=== PATIENT | female | born 1940 | race Caucasian/White ===

== ENCOUNTER 2020-11-05 13:02 | Outpatient (CLI) | payer MEDICARE, OTHER, SELFPAY ==
--- NOTE | 2020-11-05 13:10 | USCV_ITS ---
Cherry Palm Age: 80 Gender: F : 1940 Exam Date: 11/05/2020 13:41 Ordering Phys: Jeanette Tadeo APN- [employer]ATHLE[employer] Technologist: Reyna Sorenson Exam Location: [facility] [place] Indication: LT LEG PAIN PROCEDURES: The venous duplex Doppler examination of both lower extremities was performed in the standard fashion. Venous duplex imaging was performed in only the left lower extremity. The following venous structures were evaluated: common femoral vein, profunda vein, proximal portion of the greater saphenous vein, superficial femoral vein, and the popliteal vein. In addition, the posterior tibial and peroneal trunk were evaluated. FINDINGS: Normal 2-D Doppler and augmentation and compressibility throughout the lower extremity venous structures. Additional imaging through the proximal calf veins also reveals no thrombus. Limited evaluation of the greater saphenous vein is patent with no thrombus. CONCLUSIONS No DVT left lower extremity. Dr. Ruth Ann Joy DO (Electronically Signed) Final Date: 05 November 2020 13:58 Amended: 06 November 2020 11:02 C
== END 2020-11-05 13:03 | disposition home or self-care (01) ==
LOC: RAD 13:05
PROVIDERS: PCP Nurse Practitioner Family; Visit Provider Nurse Practitioner Family
DX: M79.605 Pain in left leg (principal)
CPT/HCPCS: 93971

== ENCOUNTER 2020-11-07 14:20 | Outpatient (CLI) | payer MEDICARE, OTHER, SELFPAY ==
--- NOTE | 2020-11-07 14:27 | MR_ITS ---
WS: [id number] MRI pelvis and LEFT hip without contrast. HISTORY: Pain LEFT hip beginning in October 2020. No injury. Multiplanar, multisequence imaging is performed of the LEFT hip and pelvis. No acute marrow edema. There is mild to moderate narrowing of the LEFT hip joint. Loss of the cartila ge with irregularity involving the cortical surface of the femoral head and acetabulum. No osteonecro sis. No displacement or fracture. No significant marrow edema. No significant osteoarthritic changes at the RIGHT hip. There is no joint effusion or greater trochanter bursitis. Soft tissues of the hips are symmetric. MR/MR hip LT wo con* [id number] IMPRESSION: 1. No fracture or marrow edema. 2. 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 3. No joint effusion.
== END 2020-11-07 14:21 | disposition home or self-care (01) ==
LOC: RADSHAW 14:26
PROVIDERS: PCP Nurse Practitioner Family; Visit Provider Nurse Practitioner Family
DX: M25.552 Pain in left hip (principal); Z74.09 Other reduced mobility
CPT/HCPCS: 73721

== ENCOUNTER → 2020-11-18 14:16 | Outpatient (BNVA) | payer MEDICARE, OTHER, SELFPAY | PROVIDERS: PCP Nurse Practitioner Family; Referring Provider Nurse Practitioner Family; Visit Provider Orthopaedic Surgery | DX: M25.552 Pain in left hip (principal) | CPT/HCPCS: 73502 ==

== ENCOUNTER 2020-11-20 08:54 | Outpatient (RCR) | payer MEDICARE, OTHER, SELFPAY | END 2020-12-01 23:59 | disposition home or self-care (01) | LOC: SPT 08:54 | PROVIDERS: PCP Nurse Practitioner Family; Referring Provider Orthopaedic Surgery; Visit Provider Orthopaedic Surgery | DX: M25.552 Pain in left hip (principal); M54.5 Low back pain | CPT/HCPCS: 97110; 97162 ==

== ENCOUNTER 2020-12-02 06:00 | Outpatient (RCR) | payer MEDICARE, SELFPAY | END 2020-12-29 23:59 | disposition home or self-care (01) | LOC: SPT 06:00 | PROVIDERS: PCP Nurse Practitioner Family; Referring Provider Orthopaedic Surgery; Visit Provider Orthopaedic Surgery | DX: M25.552 Pain in left hip (principal); M54.5 Low back pain | CPT/HCPCS: 97110 ==

== ENCOUNTER 2022-08-08 07:59 | Emergency (ER) | payer MEDICARE, OTHER, SELFPAY ==
[2022-08-08] VITALS (7 sets, daily range): BP systolic 135–169; BP diastolic 64–97; PULSE 60–71; RESP 16–21; TEMP 36.3; O2SAT 92–97
--- NOTE | 2022-08-08 08:09 | CTR_ITS ---
PROCEDURE INFORMATION: Exam: CT Head Without Contrast Exam date and time: 08/08/2022 8:59 AM Age: 81 years old Clinical indication: Injury or trauma; Fall; Blunt trauma (contusions or hematomas); Altered mental status/memory loss; Additional info: AMS TECHNIQUE: Imaging protocol: Computed tomography of the head without contrast. Radiation optimization: All CT scans at this facility use at least one of these dose optimization techniques: automated exposure control; mA and/or kV adjustment per patient size (includes targeted exams where dose is matched to clinical indication); or iterative reconstruction. COMPARISON: MR cervical spin wo con* [id number] 09/07/2019 1:42 PM RADIATION DOSE METRICS: Total DLP (mGy-cm): 1053.88 FINDINGS: Brain: Patchy hypoattenuation in the periventricular and subcortical white matter, consistent with chronic small vessel ischemia. No CT evidence of acute ischemia. No acute hemorrhage. No mass effect. Cerebral ventricles: No ventriculomegaly. Paranasal sinuses: Visualized sinuses are unremarkable. No fluid levels. Mastoid air cells: Visualized mastoid air cells are well aerated. Bones/joints: Unremarkable. No acute fracture. Soft tissues: Mild left frontal scalp contusion. CT/CT head wo con* [id number] IMPRESSION: No acute intracranial abnormality. Please note that MRI is more sensitive for early changes of acute ischemia.
--- NOTE | 2022-08-08 08:09 | ECG_ITS ---
[facility] Test Date: 2022-08-08 Pat Name: Cherry Palm Department: Room: Gender: Female Director Of Field Sales: : 1940 Requested By: Mathew Howard Order Number: [id number] Jerardo MD: Suzanne Humphries M.D. Measurements Intervals [place] Rate: 59 P: 55 CT: 163 QRS: -44 QRSD: 123 T: 32 QT: 462 QTc: 461 Interpretive Statements SINUS BRADYCARDIA LEFT AXIS DEVIATION [QRS AXIS < -30] POSSIBLE RIGHT VENTRICULAR CONDUCTION DELAY [RSR (QR) IN V1/V2] VOLTAGE CRITERIA FOR LVH [MEETS CRITERIA IN ONE OF: R(aVL), S(V1), R(V5), R(V5/V6)+S(V1)] POSSIBLE SEPTAL MYOCARDIAL INFARCTION , PROBABLY OLD [30 ms Q WAVE IN V1/V2] LATERAL MYOCARDIAL INFARCTION , OF INDETERMINATE AGE [40+ ms Q WAVE AND/OR ST/T ABNORMALITY IN I/aVL/V5/V6] No previous ECG available for comparison Electronically Signed On 08-08-2022 19:30:46 CDT by Suzanne Humphries M.D. [id number]
--- NOTE | 2022-08-08 08:09 | XRR_ITS ---
PROCEDURE INFORMATION: Exam: XR Chest Exam date and time: 08/08/2022 9:05 AM Age: 81 years old Clinical indication: Cough and dyspnea; Additional info: Dyspnea/cough TECHNIQUE: Imaging protocol: Radiologic exam of the chest. Views: 1 view. COMPARISON: MR cervical spin wo con* [id number] 09/07/2019 1:42 PM FINDINGS: Lungs: No focal airspace disease. Pleural spaces: Unremarkable. No pleural effusion. No pneumothorax. Heart/Mediastinum: Cardiomediastinal silhouette is within normal limits. Bones/joints: Unremarkable. XR/XR chest 1V portable [id number] IMPRESSION: No acute cardiopulmonary abnormality.
--- NOTE | 2022-08-08 08:15 | ED_ITS ---
HPI - General Adult General: Chief complaint: Weakness Stated complaint: Confusion, Falling, Weakness Time Seen by Provider: 08/08/22 08:08 Source: patient Mode of arrival: ambulatory History of Present Illness: 81-year-old female presents to the emergency room with complaints of weakness and confusion for the last couple weeks symptoms have gotten worse. He was recently treated for a bladder infection also been treated for bronchitis she was thought to have a nerve impingement and has been through several courses of steroids as well. She reports multiple falls at home. Sounds like they are ground-level mechanical fall she hit her head yesterday she is not on any anticoagulants she denies loss consciousness. She has generalized weakness in her lower extremities. She also reports urinary incontinence. This been going on for some time. She denies any pain in her back or radiating to her legs at this point. Although she evidently has seen a neurosurgeon from [place] concerning this, no advanced imaging. Onset (ago): week(s) Location: head and lower extremity (hips) Severity: moderate Relieving factors: none Exacerbating factors: none Associated symptoms: Deny chest pain, confusion, cough, diaphoresis, decreased appetite, dyspnea, fevers/chills, headache(s), malaise, nausea, rash, palpitations, seizures, short of breath, syncope, vomiting or weakness Review of Systems Const: Denies: fever(s), chills, fatigue, malaise or diaphoresis ENMT: Denies: throat pain, ear or mastoid pain, nasal discharge or nasal congestion Card: Denies: chest pain, palpitations or syncope Resp: Denies: dyspnea or productive cough GI: Denies: abdominal pain, nausea or vomiting : Denies: flank pain, difficulty voiding, dysuria, urinary frequency or urinary urgency Musc: Denies: neck pain or back pain Skin/Breast: Denies: rash Neuro: Denies: headache(s) or confusion PFSH ED PFSH: Medical History 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 Family History Grandmother Diabetes Mother Diabetes Social History (Reviewed 08/08/22 @ 08:59 by ARIANNA Hill Smoking and tobacco status: never smoked Alcohol intake: never Lives independently: Yes Household members: spouse Marital status: service: No Current occupational status: retired History of recent travel: No Leisure activites: exercise Physical Exam Const: GENERAL APPEARANCE: cooperative and comfortable ORIENTATION/ CONSCIOUSNESS: Yes awake, Yes oriented to person, Yes oriented to place and Yes oriented to time HENMT: COMMON NORMALS: normocephalic, atraumatic and hearing grossly normal bilaterally HEAD & SCALP: normocephalic and atraumatic Resp: COMMON NORMALS: normal respiratory effort, No retractions, No use of accessory muscles and clear to auscultation bilaterally AUSCULTATION: clear to auscultation bilaterally Cardio: COMMON NORMALS: regular rate, regular rhythm and No murmurs present (Cardio) RATE: regular rate RHYTHM: regular rhythm GI: COMMON NORMALS: Soft to palpation and No hepatosplenomegaly present AUSCULTATION: Yes normoactive bowel sounds PALPATION: Yes Soft to palpation, No Tenderness to palpation present (GI), No Guarding due to palpation present (GI) and Yes No hepatosplenomegaly present Extremity: COMMON NORMALS: normal to inspection, capillary refill normal, no clubbing, cyanosis or edema, no calf tenderness and no pedal edema Neuro: SENSORIUM/ORIENTATION: Yes oriented to person, Yes oriented to place and Yes oriented to time Skin: COMMON NORMALS: no rashes or lesions noted GENERAL SKIN EXAM: no r ashes or lesions noted Course Vital Signs: Vital signs: Vital Signs Temperature 97.4 F L 08/08/22 08:08 Pulse Rate 63 08/08/22 10:30 Respiratory Rate 18 08/08/22 12:07 Blood Pressure 157/97 08/08/22 12:07 Pulse Oximetry 97 08/08/22 12:07 Oxygen Delivery Me thod 08/08/22 12:07 MDM - General Adult Medical Decision Making Posterior proved patient ambulated. She is hyponatremic but it corrects with adjusting for her glucose. She is improved since she arrived here with the fluids she is able to eat and drink we will discharge her home I think the biggest problem with her confusion and her elevated blood sugars due to s teroids, recommend she stop the oral steroids. Recheck with her primary care doctor in 2 days. Medical Records I reviewed the patient's medical records. Lab Data I reviewed the patient's lab results. : 08/08/22 08:52 08/08/22 08:52 Radiology Impressions Chest X-Ray 08/08/22 08:09 IMPRESSION: No acute cardiopulmonary abnormality. Head CT 08/08/22 08:09 IMPRESSION: No acute intracranial abnormality. Please note that MRI is more sensitive for early changes of acute ischemia. Laboratory Results WBC 14.0 10^3/uL (4.0-10.0) H 08/08/22 08:52 RBC 4.30 10^6/uL (4.1-5.3) 08/08/22 08:52 Hgb 14.2 g/dL (11.5-15.3) 08/08/22 08:52 Hct 41.4 % (37.0-47.0) 08/08/22 08:52 MCV 96.3 fl (81-99) 08/08/22 08:52 MCH 33.0 pg (28.0-34.0) 08/08/22 08:52 MCHC 34.3 g/dL (30.0-36.0) 08/08/22 08:52 RDW 12.5 % (12.1-15.1) 08/08/22 08:52 Plt Count 239 10^3/cmm (130-400) 08/08/22 08:52 MPV 11.0 fL (7.4-10.4) H 08/08/22 08:52 Neut % (Auto) 83.6 % 08/08/22 08:52 Lymph % (Auto) 9.7 % 08/08/22 08:52 [place] % (Auto) 5.1 % 08/08/22 08:52 Eos % (Auto) 0.2 % 08/08/22 08:52 Baso % (Auto) 0.3 % 08/08/22 08:52 Neut # (Auto) 11.69 10^3/uL (1.8-7.7) H 08/08/22 08:52 Lymph # (Auto) 1.4 10^3/uL (0.8-4.8) 08/08/22 08:52 [place] # (Auto) 0.7 10^3/uL (0.2-0.9) 08/08/22 08:52 Eos # (Auto) 0.0 10^3/uL (0.0-0.8) 08/08/22 08:52 Baso # (Auto) 0.0 10^3/uL (0.0-0.1) 08/08/22 08:52 Nucleated RBC % (auto) 0 % 08/08/22 08:52 Nucleated RBCs # 0.0 /100WBC 08/08/22 08:52 Sodium 129 mmol/L (136-145) L 08/08/22 08:52 Potassium 5.1 mmol/L (3.5-5.1) 08/08/22 08:52 Chloride 92 mmol/L (98-107) L 08/08/22 08:52 Carbon Dioxide 18 mmol/L (22-29) L 08/08/22 08:52 Anion Gap 24.1 (5-19) H 08/08/22 08:52 BUN 27 mg/dL (8-23) H 08/08/22 08:52 Creatinine 0.9 mg/dL (0.5-0.9) 08/08/22 08:52 GFR Calculation Not Reportable 08/08/22 08:52 Glucose 498 mg/dL (65-115) H 08/08/22 08:52 POC Glucose 287 mg/dL (70-110) H 08/08/22 12:20 Calculated Osmolality 295 mOsm/kg (285-295) 08/08/22 08:52 Calcium 10.1 mg/dL (8.5-10.5) 08/08/22 08:52 Total Bilirubin 0.4 mg/dL (0.15-1.2) 08/08/22 08:52 AST 19 U/L (0-32) 08/08/22 08:52 ALT 28 U/L (0-33) 08/08/22 08:52 Alkaline Phosphatase 126 U/L (35-105) H 08/08/22 08:52 Troponin T Baseline 29 ng/L (0-10) H 08/08/22 08:52 Troponin T 120 Minute 26.92 ng/L (0-10) H 08/08/22 10:51 Delta Troponin T -2.08 ABS# (0-10) L 08/08/22 10:51 Total Protein 7.2 g/dL (6.6-8.7) 08/08/22 08:52 Albumin 3.2 g/dL (3.5-5.2) L 08/08/22 08:52 Globulin 4.0 g/dL (1.3-4.6) 08/08/22 08:52 Urine Color Yellow (Yellow) 08/08/22 09:20 Urine Appearance Clear (CLEAR) 08/08/22 09:20 Urine pH 5 (5-7) 08/08/22 09:20 Ur Specific [place] 1.015 (1.005-1.030) 08/08/22 09:20 Urine Protein Neg (Negative) 08/08/22 09:20 Urine Glucose (UA) 4+ (Normal) H 08/08/22 09:20 Urine Ketones 2+ (Negative) H 08/08/22 09:20 Urine Blood Neg (Negative) 08/08/22 09:20 Urine Nitrate Negative (Negative) 08/08/22 09:20 Urine Bilirubin Neg (Negative) 08/08/22 09:20 Urine Urobilinogen Neg mg/dL (Negative) 08/08/22 09:20 Ur Leukocyte Esterase Negative (Negative) 08/08/22 09:20 Discharge Plan Discharge Patient Disposition: Home Clinical Impression: Stenosis of cervical spine with myelopathy, Side effect of drug, Diabetes Condition: Stable Prescriptions: No Action Januvia 100 mg tablet 100 mg PO ONCE glipizide 5 mg tablet 5 mg PO ONCE Jardiance 10 mg tablet 10 mg PO QAM amlodipine 5 mg tablet 5 mg PO ONCE levothyroxine 137 mcg capsule 137 mcg PO ONCE lovastatin 20 mg tablet 20 mg PO ONCE estradiol 2 mg tablet 2 mg PO ONCE omega 9-hny-hov-fish oil [Fish Oil] 1,000 mg (120 mg-180 mg) capsule 2 cap PO TID clonazepam 0.5 mg tablet 0.5 mg PO ONCE diphenoxylate-atropine 2.5-0.025 mg tablet 1 tab PO Q6H PRN cyanocobalamin (vitamin B-12) 1,000 mcg capsule 1,000 mcg PO ONCE aspirin 81 mg tablet,delayed release (DR/EC) 81 mg PO ONCE potassium 99 mg tablet PO ONCE tramadol 50 mg tablet 50 mg PO TID PRN Discharge Orders: Discharge ED (Routine); Ordered 08/08/22 Ordered By: Mathew Bahena Referrals: Tadeo,Jeanette, IT AUDIT MANAGER [Primary Care Provider] - Discharge Diet: Usual diet Discharge Activity: Increase activity as tolerated Patient Instructions: Opioid Safety, Pain Management Activity Restrictions/Additional Instructions: Stop oral steroids continue antihyperglycemic meds occasions. Follow-up with your primary care doctor in 2 days. Return if you have further problems. Coding Level of Care Code ED Engineer Assistant for Vannag Fwd Exam Detailed
[2022-08-08 09:07] LABS: Basophils % 0.3 %; Eosinophils % 0.2 %; Hematocrit 41.4 % (37.0-47.0); Hemoglobin 14.2 g/dL (11.5-15.3); Lymphocytes # 1.4 10^3/uL (0.8-4.8); Lymphocytes % 9.7 %; Mean Corpuscular HGB Conc 34.3 g/dL (30.0-36.0); Mean Corpuscular Volume 96.3 fl (81-99); Monocytes # 0.7 10^3/uL (0.2-0.9); Monocytes % 5.1 %; Neutrophils # 11.69 10^3/uL (1.8-7.7); Neutrophils % 83.6 %; Nucleated Red Blood Cells % 0 %; Platelet Count 239 10^3/cmm (130-400); Red Cell Distribution Width 12.5 % (12.1-15.1)
[2022-08-08 09:23] LABS: Alanine Aminotransferase 28 U/L (0-33); Albumin Level 3.2 g/dL (3.5-5.2); Alkaline Phosphatase 126 U/L (35-105); Blood Urea Nitrogen 27 mg/dL (8-23); Calcium 10.1 mg/dL (8.5-10.5); Carbon Dioxide 18 mmol/L (22-29); Chloride 92 mmol/L (98-107); Glucose 498 mg/dL (65-115); Osmolality Calculated 295 mOsm/kg (285-295); Sodium 129 mmol/L (136-145); Total Bilirubin 0.4 mg/dL (0.15-1.2); Total Protein 7.2 g/dL (6.6-8.7)
[2022-08-08 09:24] LABS: Troponin(5th) Baseline 29 ng/L (0-10)
[2022-08-08 09:32] LABS: Anion Gap 24.1 (5-19); Aspartate Amino Transferase 19 U/L (0-32); Potassium 5.1 mmol/L (3.5-5.1)
[2022-08-08 09:33] LABS: Add Urine Microscopic? NO; Charge for UA Resulting for Rev
[2022-08-08 09:41] LABS: Specific Gravity, Urine 1.015 (1.005-1.030); Urine Appearance Clear (CLEAR); Urine Color Yellow (Yellow); pH Urine 5 (5-7)
[2022-08-08 09:42] LABS: Bilirubin Urine Neg (Negative); Blood Urine Neg (Negative); Glucose Urine UA 4+ (Normal); Ketones Urine 2+ (Negative); Leukocyte Esterase Urine Negative (Negative); Nitrate Urine Negative (Negative); Protein Urine Neg (Negative); Urobilinogen Urine Neg (Negative)
--- NOTE | 2022-08-08 10:09 | ECG_ITS ---
[facility] Test Date: 2022-08-08 Pat Name: Cherry Palm Department: Room: Gender: Female [employer]: : 1940 Requested By: Mathew Howard Order Number: [id number] Jerardo MD: Suzanne Humphries M.D. Measurements Intervals [place] Rate: 63 P: 66 MN: 164 QRS: -43 QRSD: 133 T: 59 QT: 464 QTc: 476 Interpretive Statements Normal sinus rhythm Left-ventricular hypertrophy Possible lateral wall infarction Nonspecific IVCD Right ventricular conduction delay ABNORMAL RHYTHM ECG Compared to ECG 08/08/2022 07:56:23 Sinus bradycardia no longer present Electronically Signed On 08-08-2022 19:39:16 CDT by Suzanne Humphries M.D. [id number]
[2022-08-08] MEDS: sodium chloride 0.9% 1,000 ML 999 ML IV (10:28)
[2022-08-08] MEDS: insulin regular-human 100 units/1 mL 10 UNIT IVP (10:50)
[2022-08-08 11:14] LABS: Troponin 5 2HR 26.92 ng/L (0-10)
[2022-08-08 11:15] LABS: Glucose Point of Care 414 mg/dL (70-110)
[2022-08-08 11:15] LABS: Troponin 5 2HR Delta -2.08 ABS# (0-10)
[2022-08-08 12:23] LABS: Glucose Point of Care 287 mg/dL (70-110)
== END 2022-08-08 12:58 | disposition home or self-care (01) ==
PROVIDERS: Emergency Provider Family Medicine; PCP Nurse Practitioner Family
DX: T88.7XXA Unspecified adverse effect of drug or medicament, initial encounter (principal); T50.905A Adverse effect of unspecified drugs, medicaments and biological substances, initial encounter; M48.02 Spinal stenosis, cervical region; G99.2 Myelopathy in diseases classified elsewhere; E11.9 Type 2 diabetes mellitus without complications; Z79.84 Long term (current) use of oral hypoglycemic drugs; Z79.82 Long term (current) use of aspirin
CPT/HCPCS: 36415; 36416; 70450; 71045; 80053; 81003; 82962; 84484; 85025; 93005; 96361; 96374; 99285; J1815; J7030

== ENCOUNTER 2022-08-08 21:02 | Inpatient (IN) | payer MEDICARE, OTHER, SELFPAY ==
[2022-08-08 21:08] VITALS: BP 153/80; PULSE 79; RESP 18; TEMP 36.5; O2SAT 93; BMI 25.2
--- NOTE | 2022-08-08 21:49 | ED_ITS ---
Documented by User: Nova Brown MD 08/08/22 23:03 HPI - General Adult General: Chief complaint: General Medical Stated complaint: blood sugar issues Time Seen by Provider: 08/08/22 21:49 History of Present Illness: Patient is an 81-year-old female with a history of type 2 diabetes who was seen earlier today in the emergency room for concerns of increased confusion and lightheadedness presents the emergency room for concerns of hyperglycemia. Patient was discharged home earlier today and shortly after going home, patient reports that her glucose has increased. Patient came back to the emergency room for concerns of glucose of 500. Patient reports no longer has any lightheadedness sensation today. Denies any fever/chills, cough, no sore throat, chest pain or shortness of breath. Patient denies any abdominal complaints at this time. Per patient's son, patient has been using steroid medication for treatment of poison neeru. Patient normally does not take any insulin. Patient denies any other focal complaints at this time. Onset:earlier today Duration:ongoing Location:home Severity:moderate Associated symptoms: Deny chest pain, dyspnea, nausea, rash, palpitations or vomiting Review of Systems Const: Denies: fever(s) or chills Eyes: Denies: change in vision ENMT: Denies: mouth pain Card: Denies: chest pain or palpitations Resp: Denies: dyspnea or non-productive cough GI: Denies: abdominal pain, nausea, vomiting or diarrhea : Denies: dysuria Musc: Denies: extremity pain Skin/Breast: Denies: rash or new lesions Neuro: Denies: weakness in extremities Psych: Reports: other (Normal mood) Jem/Lymph: Denies: easy bruising PFSH ED PFSH: Medical History 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 Family History Grandmother Diabetes Mother Diabetes Social History Smoking and tobacco status: never smoked Alcohol intake: never Lives independently: Yes Household members: spouse Marital status: service: No Current occupational status: retired History of recent travel: No Leisure activites: exercise Physical Exam Const: COMMON NORMALS: alert HENMT: COMMON NORMALS: atraumatic HEAD & SCALP: atraumatic MOUTH: moist mucous membranes not abnormal Eye: COMMON NORMALS: EOMs intact bilaterally and conjunctivae normal CONJUNCTIVA: Yes conjunctivae normal Neck/C-Spine: COMMON NORMALS: full ROM and supple Resp: COMMON NORMALS: normal respiratory effort and clear to auscultation bilaterally AUSCULTATION: clear to auscultation bilaterally Cardio: COMMON NORMALS: regular rate RATE: regular rate GI: COMMON NORMALS: Soft to palpation and non-tender PALPATION: Yes Soft to palpation OTHER: No focal TTP. NO guarding rebound, guarding, rigidity. No CVA tenderness to percussion. Neg Valle/Neg McBurney's point tenderness, no suprabupic tenderness to palpation. Extremity: COMMON NORMALS: full ROM Neuro: SENSORIUM/ORIENTATION: Yes alert MOTOR EXAM: No Abnormal motor strength present and Other motor observations present (no focal motor deficits) Psych: COMMON NORMALS: speech normal SPEECH: Yes normal speech MOOD & AFFECT: Yes euthymic mood Course Vital Signs: Vital signs: Vital Signs Temperature 97.7 F 08/09/22 11:47 Pulse Rate 78 08/09/22 11:47 Respiratory Rate 16 08/09/22 11:47 Blood Pressure 132/76 08/09/22 11:47 Pulse Oximetry 98 08/09/22 11:47 Oxygen Delivery Me thod 08/09/22 11:47 Oxygen Flow Rate 2 08/09/22 09:28 [facility] - General Adult Medical Decision Making Patient is an 81-year-old female with a history of type 2 diabetes who was seen earlier today in the emergency room for concerns of increased confusion and lightheadedness presents the emergency room for concerns of hyperglycemia. Arrival, patient has a glucose 529. Serum ketones negative. Do not suspect DKA. White count 15.9 similar to presentation earlier today 6 consistent with possible reactive leukocytosis due to steroids. Do not suspect any acute infection. Patient received 100 cc IVF and 5 units of insulin lispro. Case signed out pending reassessment. Lab Data : 08/09/22 05:35 08/09/22 05:35 Radiology Impressions Chest X-Ray 08/09/22 04:14 IMPRESSION: There is patchy opacity in the medial left lung base which may be due to a left lower lobe pneumonia. Lumbar Spine CT 08/09/22 06:32 IMPRESSION: 1. No acute findings. 2. Chronic degenerative disc disease with disc protrusions and moderate spinal stenosis at L2-L3 and L3-L4 and mild spinal stenosis at L4-L5. Laboratory Results WBC 15.9 10^3/uL (4.0-10.0) H 08/08/22 21:45 RBC 4.01 10^6/uL (4.1-5.3) L 08/08/22 21:45 Hgb 12.9 g/dL (11.5-15.3) 08/08/22 21:45 Hct 38.7 % (37.0-47.0) 08/08/22 21:45 MCV 96.5 fl (81-99) 08/08/22 21:45 MCH 32.2 pg (28.0-34.0) 08/08/22 21:45 MCHC 33.3 g/dL (30.0-36.0) 08/08/22 21:45 RDW 12.6 % (12.1-15.1) 08/08/22 21:45 Plt Count 290 10^3/cmm (130-400) 08/08/22 21:45 MPV 10.1 fL (7.4-10.4) 08/08/22 21:45 Neut % (Auto) 80.2 % 08/08/22 21:45 Lymph % (Auto) 9.6 % 08/08/22 21:45 [place] % (Auto) 7.4 % 08/08/22 21:45 Eos % (Auto) 1.7 % 08/08/22 21:45 Baso % (Auto) 0.2 % 08/08/22 21:45 Neut # (Auto) 12.74 10^3/uL (1.8-7.7) H 08/08/22 21:45 Lymph # (Auto) 1.5 10^3/uL (0.8-4.8) 08/08/22 21:45 [place] # (Auto) 1.2 10^3/uL (0.2-0.9) H 08/08/22 21:45 Eos # (Auto) 0.3 10^3/uL (0.0-0.8) 08/08/22 21:45 Baso # (Auto) 0.0 10^3/uL (0.0-0.1) 08/08/22 21:45 Nucleated RBC % (auto) 0 % 08/08/22 21:45 Nucleated RBCs # 0.0 /100WBC 08/08/22 21:45 Specimen Type Arterial 08/08/22 00:35 Sample Site radial,right 08/08/22 00:35 ABG pH 7.40 (7.35-7.45) 08/08/22 00:35 ABG pCO2 34.1 mmHg (35-45) L 08/08/22 00:35 ABG pO2 74.8 mmHg (80.0-100.0) L 08/08/22 00:35 ABG HCO3 20.8 mmol/L (22-26) L 08/08/22 00:35 ABG Base Excess -3.4 mmol/L (-2.0-2.0) L 08/08/22 00:35 Yared Test Pos 08/08/22 00:35 Hematocrit 37.2 % (37-47) 08/08/22 00:35 O2 Delivery Device room air 08/08/22 00:35 Concert Promoter ID [email or web address] 08/08/22 00:35 Sodium 133 mmol/L (136-145) L 08/08/22 21:45 Potassium 4.6 mmol/L (3.5-5.1) 08/08/22 21:45 Chloride 96 mmol/L (98-107) L 08/08/22 21:45 Carbon Dioxide 21 mmol/L (22-29) L 08/08/22 21:45 Anion Gap 20.6 (5-19) H 08/08/22 21:45 BUN 30 mg/dL (8-23) H 08/08/22 21:45 Creatinine 1.1 mg/dL (0.5-0.9) H 08/08/22 21:45 GFR Calculation Not Reportable 08/08/22 21:45 Glucose 524 mg/dL (65-115) H* 08/08/22 21:45 POC Glucose 270 mg/dL (70-110) H 08/09/22 01:32 Calculated Osmolality 306 mOsm/kg (285-295) H 08/08/22 21:45 Calcium 9.4 mg/dL (8.5-10.5) 08/08/22 21:45 Troponin T Baseline 37 ng/L (0-10) H 08/08/22 21:45 Troponin T 120 Minute 34.86 ng/L (0-10) H 08/08/22 23:30 Delta Troponin T -2.14 ABS# (0-10) L 08/08/22 23:30 Serum Ketones Positive (Negative) H 08/08/22 23:30 Discharge Plan Discharge Patient Disposition: Placed in Observation Admit Provider: Rosy Padilla Clinical Impression: Hyperglycemia Discharge Diet: Advance as tolerated Discharge Activity: Increase activity as tolerated Sign Out Sign Out Data: Patient Sign Out occurred on 08/08/22 at 23:00. Patient's care was discussed, and care was transferred from to KIESHA Phipps. 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 Family History Grandmother Diabetes Mother Diabetes Social History Smoking and tobacco status: never smoked Alcohol intake: never Lives independently: Yes Household members: spouse Marital status: service: No Current occupational status: retired History of recent travel: No Leisure activites: exercise Course Vital Signs: Vital signs: Vital Signs Temperature 97.7 F 08/09/22 11:47 Pulse Rate 78 08/09/22 11:47 Respiratory Rate 16 08/09/22 11:47 Blood Pressure 132/76 08/09/22 11:47 Pulse Oximetry 98 10/09/22 11:47 Oxygen Delivery Me thod 08/09/22 11:47 Oxygen Flow Rate 2 08/09/22 09:28 MDM - General Adult Medical Decision Making Patient is an 81-year-old female with a history of type 2 diabetes who was seen earlier today in the emergency room for concerns of increased confusion and lightheadedness presents the emergency room for concerns of hyperglycemia. Arrival, patient has a glucose 529. Serum ketones positive. White count 15.9 similar to presentation earlier today 6 consistent with possible reactive leukocytosis due to steroids. Do not suspect any acute infection. Patient received 100 cc IVF and 5 units of insulin lispro. Case signed out pending reassessment. Lab Data I reviewed the patient's lab results. : 08/09/22 05:35 08/09/22 05:35 Radiology Impressions Chest X-Ray 08/09/22 04:14 IMPRESSION: There is patchy opacity in the medial left lung base which may be due to a left lower lobe pneumonia. Lumbar Spine CT 08/09/22 06:32 IMPRESSION: 1. No acute findings. 2. Chronic degenerative disc disease with disc protrusions and moderate spinal stenosis at L2-L3 and L3-L4 and mild spinal stenosis at L4-L5. Laboratory Results WBC 15.9 10^3/uL (4.0-10.0) H 08/08/22 21:45 RBC 4.01 10^6/uL (4.1-5.3) L 08/08/22 21:45 Hgb 12.9 g/dL (11.5-15.3) 08/08/22 21:45 Hct 38.7 % (37.0-47.0) 08/08/22 21:45 MCV 96.5 fl (81-99) 08/08/22 21:45 MCH 32.2 pg (28.0-34.0) 08/08/22 21:45 MCHC 33.3 g/dL (30.0-36.0) 08/08/22 21:45 RDW 12.6 % (12.1-15.1) 08/08/22 21:45 Plt Count 290 10^3/cmm (130-400) 08/08/22 21:45 MPV 10.1 fL (7.4-10.4) 08/08/22 21:45 Neut % (Auto) 80.2 % 08/08/22 21:45 Lymph % (Auto) 9.6 % 08/08/22 21:45 [place] % (Auto) 7.4 % 08/08/22 21:45 Eos % (Auto) 1.7 % 08/08/22 21:45 Baso % (Auto) 0.2 % 08/08/22 21:45 Neut # (Auto) 12.74 10^3/uL (1.8-7.7) H 08/08/22 21:45 Lymph # (Auto) 1.5 10^3/uL (0.8-4.8) 08/08/22 21:45 [place] # (Auto) 1.2 10^3/uL (0.2-0.9) H 08/08/22 21:45 Eos # (Auto) 0.3 10^3/uL (0.0-0.8) 08/08/22 21:45 Baso # (Auto) 0.0 10^3/uL (0.0-0.1) 08/08/22 21:45 Nucleated RBC % (auto) 0 % 08/08/22 21:45 Nucleated RBCs # 0.0 /100WBC 08/08/22 21:45 Specimen Type Arterial 08/08/22 00:35 Sample Site radial,right 08/08/22 00:35 ABG pH 7.40 (7.35-7.45) 08/08/22 00:35 ABG pCO2 34.1 mmHg (35-45) L 08/08/22 00:35 ABG pO2 74.8 mmHg (80.0-100.0) L 08/08/22 00:35 ABG HCO3 20.8 mmol/L (22-26) L 08/08/22 00:35 ABG Base Excess -3.4 mmol/L (-2.0-2.0) L 08/08/22 00:35 Yared Test Pos 08/08/22 00:35 Hematocrit 37.2 % (37-47) 08/08/22 00:35 O2 Delivery Device room air 08/08/22 00:35 Concert Promoter ID [email or web address] 08/08/22 00:35 Sodium 133 mmol/L (136-145) L 08/08/22 21:45 Potassium 4.6 mmol/L (3.5-5.1) 08/08/22 21:45 Chloride 96 mmol/L (98-107) L 08/08/22 21:45 Carbon Dioxide 21 mmol/L (22-29) L 08/08/22 21:45 Anion Gap 20.6 (5-19) H 08/08/22 21:45 BUN 30 mg/dL (8-23) H 08/08/22 21:45 Creatinine 1.1 mg/dL (0.5-0.9) H 08/08/22 21:45 GFR Calculation Not Reportable 08/08/22 21:45 Glucose 524 mg/dL (65-115) H* 08/08/22 21:45 POC Glucose 270 mg/dL (70-110) H 08/09/22 01:32 Calculated Osmolality 306 mOsm/kg (285-295) H 08/08/22 21:45 Calcium 9.4 mg/dL (8.5-10.5) 08/08/22 21:45 Troponin T Baseline 37 ng/L (0-10) H 08/08/22 21:45 Troponin T 120 Minute 34.86 ng/L (0-10) H 08/08/22 23:30 Delta Troponin T -2.14 ABS# (0-10) L 08/08/22 23:30 Serum Ketones Positive (Negative) H 08/08/22 23:30 Discharge Plan Discharge Patient Disposition: Placed in Observation Admit Provider: Rosy Padilla Clinical Impression: Hyperglycemia Discharge Diet: Advance as tolerated Discharge Activity: Increase activity as tolerated Sign Out Sign Out Data: Patient Sign Out occurred on 08/08/22 at 23:00. Patient's care was discussed, and care was transferred from to KIESHA Phipps. 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 Family History Grandmother Diabetes Mother Diabetes Social History Smoking and tobacco status: never smoked Alcohol intake: never Lives independently: Yes Household members: spouse Marital status: service: No Current occupational status: retired History of recent travel: No Leisure activites: exercise Course Vital Signs: Vital signs: Vital Signs Temperature 97.7 F 08/09/22 11:47 Pulse Rate 78 08/09/22 11:47 Respiratory Rate 16 08/09/22 11:47 Blood Pressure 132/76 08/09/22 11:47 Pulse Oximetry 98 08/09/22 11:47 Oxygen Delivery Oh thod 08/09/22 11:47 Oxygen Flow Rate 2 08/09/22 09:28 MDM - General Adult Medical Decision Making Patient is an 81-year-old female with a history of type 2 diabetes who was seen earlier today in the emergency room for concerns of increased confusion and lightheadedness presents the emergency room for concerns of hyperglycemia. Arrival, patient has a glucose 529. Serum ketones positive. White count 15.9 similar to presentation earlier today 6 consistent with possible reactive leukocytosis due to steroids. Do not suspect any acute infection. Patient received 1000 cc IVF and 5 units of insulin lispro. Case signed out pending reassessment. Case signed out to me at shift change. The patient received 5 more units of insulin. Blood sugar now 270. She is still incredibly weak, and mildly confused. Serum ketones are positive. She does not have a gap now she is not acidotic. She will be observed for generalized weakness, with uncontrolled hyperglycemia. Lab Data : 08/09/22 05:35 08/09/22 05:35 Radiology Impressions Chest X-Ray 08/09/22 04:14 IMPRESSION: There is patchy opacity in the medial left lung base which may be due to a left lower lobe pneumonia. Lumbar Spine CT 08/09/22 06:32 IMPRESSION: 1. No acute findings. 2. Chronic degenerative disc disease with disc protrusions and moderate spinal stenosis at L2-L3 and L3-L4 and mild spinal stenosis at L4-L5. Laboratory Results WBC 15.9 10^3/uL (4.0-10.0) H 08/08/22 21:45 RBC 4.01 10^6/uL (4.1-5.3) L 08/08/22 21:45 Hgb 12.9 g/dL (11.5-15.3) 08/08/22 21:45 Hct 38.7 % (37.0-47.0) 08/08/22 21:45 MCV 96.5 fl (81-99) 08/08/22 21:45 MCH 32.2 pg (28.0-34.0) 08/08/22 21:45 MCHC 33.3 g/dL (30.0-36.0) 08/08/22 21:45 RDW 12.6 % (12.1-15.1) 08/08/22 21:45 Plt Count 290 10^3/cmm (130-400) 08/08/22 21:45 MPV 10.1 fL (7.4-10.4) 08/08/22 21:45 Neut % (Auto) 80.2 % 08/08/22 21:45 Lymph % (Auto) 9.6 % 08/08/22 21:45 [place] % (Auto) 7.4 % 08/08/22 21:45 Eos % (Auto) 1.7 % 08/08/22 21:45 Baso % (Auto) 0.2 % 08/08/22 21:45 Neut # (Auto) 12.74 10^3/uL (1.8-7.7) H 08/08/22 21:45 Lymph # (Auto) 1.5 10^3/uL (0.8-4.8) 08/08/22 21:45 [place] # (Auto) 1.2 10^3/uL (0.2-0.9) H 08/08/22 21:45 Eos # (Auto) 0.3 10^3/uL (0.0-0.8) 08/08/22 21:45 Baso # (Auto) 0.0 10^3/uL (0.0-0.1) 08/08/22 21:45 Nucleated RBC % (auto) 0 % 08/08/22 21:45 Nucleated RBCs # 0.0 /100WBC 08/08/22 21:45 Specimen Type Arterial 08/08/22 00:35 Sample Site radial,right 08/08/22 00:35 ABG pH 7.40 (7.35-7.45) 08/08/22 00:35 ABG pCO2 34.1 mmHg (35-45) L 08/08/22 00:35 ABG pO2 74.8 mmHg (80.0-100.0) L 08/08/22 00:35 ABG HCO3 20.8 mmol/L (22-26) L 08/08/22 00:35 ABG Base Excess -3.4 mmol/L (-2.0-2.0) L 08/08/22 00:35 Yared Test Pos 08/08/22 00:35 Hematocrit 37.2 % (37-47) 08/08/22 00:35 O2 Delivery Device room air 08/08/22 00:35 Concert Promoter ID [email or web address] 08/08/22 00:35 Sodium 133 mmol/L (136-145) L 08/08/22 21:45 Potassium 4.6 mmol/L (3.5-5.1) 08/08/22 21:45 Chloride 96 mmol/L (98-107) L 08/08/22 21:45 Carbon Dioxide 21 mmol/L (22-29) L 08/08/22 21:45 Anion Gap 20.6 (5-19) H 08/08/22 21:45 BUN 30 mg/dL (8-23) H 08/08/22 21:45 Creatinine 1.1 mg/dL (0.5-0.9) H 08/08/22 21:45 GFR Calculation Not Reportable 08/08/22 21:45 Glucose 524 mg/dL (65-115) H* 08/08/22 21:45 POC Glucose 270 mg/dL (70-110) H 08/09/22 01:32 Calculated Osmolality 306 mOsm/kg (285-295) H 08/08/22 21:45 Calcium 9.4 mg/dL (8.5-10.5) 08/08/22 21:45 Troponin T Baseline 37 ng/L (0-10) H 08/08/22 21:45 Troponin T 120 Minute 34.86 ng/L (0-10) H 08/08/22 23:30 Delta Troponin T -2.14 ABS# (0-10) L 08/08/22 23:30 Serum Ketones Positive (Negative) H 08/08/22 23:30 Discharge Plan Discharge Patient Disposition: Placed in Observation Admit Provider: Rosy Padilla Clinical Impression: Hyperglycemia Discharge Diet: Advance as tolerated Discharge Activity: Increase activity as tolerated Sign Out Sign Out Data: Patient Sign Out occurred on 08/08/22 at 23:00. Patient's care was discussed, and care was transferred from to KIESHA Phipps. Coding Level of Care Code ED Window Glass Installer for Frannie Fwd Exam Comprehensive
[2022-08-08 21:51] LABS: Glucose Point of Care 492 mg/dL (70-110)
[2022-08-08] MEDS: sodium chloride 0.9% 500 ML IV (21:55)
[2022-08-08 21:58] LABS: Basophils % 0.2 %; Eosinophils # 0.3 10^3/uL (0.0-0.8); Eosinophils % 1.7 %; Hematocrit 38.7 % (37.0-47.0); Hemoglobin 12.9 g/dL (11.5-15.3); Lymphocytes # 1.5 10^3/uL (0.8-4.8); Lymphocytes % 9.6 %; Mean Corpuscular HGB Conc 33.3 g/dL (30.0-36.0); Mean Corpuscular Hemoglobin 32.2 pg (28.0-34.0); Mean Corpuscular Volume 96.5 fl (81-99); Mean Platelet Volume 10.1 fL (7.4-10.4); Monocytes # 1.2 10^3/uL (0.2-0.9); Monocytes % 7.4 %; Neutrophils # 12.74 10^3/uL (1.8-7.7); Neutrophils % 80.2 %; Nucleated Red Blood Cells % 0 %; Platelet Count 290 10^3/cmm (130-400); Red Blood Count 4.01 10^6/uL (4.1-5.3); Red Cell Distribution Width 12.6 % (12.1-15.1); White Blood Count 15.9 10^3/uL (4.0-10.0)
[2022-08-08 22:17] LABS: Anion Gap 20.6 (5-19); Blood Urea Nitrogen 30 mg/dL (8-23); Calcium 9.4 mg/dL (8.5-10.5); Carbon Dioxide 21 mmol/L (22-29); Chloride 96 mmol/L (98-107); Osmolality Calculated 306 mOsm/kg (285-295); Potassium 4.6 mmol/L (3.5-5.1); Sodium 133 mmol/L (136-145)
--- NOTE | 2022-08-08 22:21 | ECG_ITS ---
[facility] Test Date: 2022-08-08 Pat Name: Cherry Palm Department: Room: Gender: Female Cafe Attendant: : 1940 Requested By: Nova Brown Order Number: [id number] Jerardo MD: Suzanne Humphries M.D. Measurements Intervals [place] Rate: 76 P: 60 LA: 161 QRS: -48 QRSD: 134 T: 56 QT: 425 QTc: 479 Interpretive Statements SINUS RHYTHM LEFT AXIS DEVIATION [QRS AXIS < -30] INTRAVENTRICULAR CONDUCTION DELAY [130+ ms QRS DURATION] VOLTAGE CRITERIA FOR LVH [MEETS CRITERIA IN ONE OF: R(aVL), S(V1), R(V5), R(V5/V6)+S(V1)] POSSIBLE SEPTAL MYOCARDIAL INFARCTION , OF INDETERMINATE AGE [30 ms Q WAVE IN V1/V2] Compared to ECG 08/08/2022 11:17:28 Left-axis deviation now present Left ventricular hypertrophy now present Myocardial infarct finding still present Electronically Signed On 08-09-2022 18:04:07 CDT by Suzanne Humphries M.D. [id number]
[2022-08-08 22:30] LABS: Glucose 524 mg/dL (65-115)
[2022-08-08 22:50] LABS: Troponin(5th) Baseline 37 ng/L (0-10)
[2022-08-08] MEDS: insulin lispro 100 unit/1 mL SUBCUT (22:54)
[2022-08-08] MEDS: insulin regular-human 100 units/1 mL 5 UNIT IVP (23:20)
[2022-08-08 23:52] LABS: Ketone (Acetest) Serum Positive (Negative)
[2022-08-09] VITALS (9 sets, daily range): BP systolic 132–175; BP diastolic 73–91; PULSE 73–88; RESP 15–18; TEMP 36.3–36.8; O2SAT 91–98
[2022-08-09 00:05] LABS: Troponin 5 2HR 34.86 ng/L (0-10)
[2022-08-09 00:19] LABS: Troponin 5 2HR Delta -2.14 ABS# (0-10)
--- NOTE | 2022-08-09 00:35 | ECG_ITS ---
[facility] Test Date: 2022-08-09 Pat Name: Cherry Palm Department: Room: Gender: Female Cyanide Pot Tender: : 1940 Requested By: Nova Brown Order Number: [id number] Jerardo MD: Suzanne Humphries M.D. Measurements Intervals [place] Rate: 73 P: 40 [place]: 166 QRS: -47 QRSD: 124 T: 57 QT: 427 QTc: 472 Interpretive Statements SINUS RHYTHM RIGHT BUNDLE BRANCH BLOCK [120+ ms QRS DURATION, UPRIGHT V1, 40+ ms S IN I/aVL/V4/V5/V6] LEFT ANTERIOR FASCICULAR BLOCK [QRS AXIS <= -45, QR IN I, RS IN II] VOLTAGE CRITERIA FOR LVH [MEETS CRITERIA IN ONE OF: R(aVL), S(V1), R(V5), R(V5/V6)+S(V1)] LATERAL MYOCARDIAL INFARCTION , PROBABLY OLD [40+ ms Q WAVE AND/OR ST/T ABNORMALITY IN I/aVL/V5/V6] Compared to ECG 08/08/2022 22:28:16 Right bundle-branch block now presentLeft anterior fascicular block now present Left-axis deviation no longer presentIntraventricular conduction delay no longer present.Myocardial infarct finding still present Electronically Signed On 08-09-2022 18:28:39 CDT by Suzanne Humphries M.D. [email or web address].[employer]/store/[id number]
[2022-08-09 00:39] LABS: ABG PCO2 34.1 mmHg (35-45); Arterial Blood Gas Hematocrit 37.2 % (37-47); Base Excess ABG -3.4 mmol/L (-2.0-2.0); Blood Gas Allen Test Pos; Blood Gas Sample Type Arterial; HCO3 ABG 20.8 mmol/L (22-26); PO2 ABG 74.8 mmHg (80.0-100.0)
[2022-08-09 01:02] LABS: Oxygen Device room air
[2022-08-09 01:36] LABS: Glucose Point of Care 270 mg/dL (70-110)
--- NOTE | 2022-08-09 02:49 | P.HP_ITS ---
Providers/Chief Complaint Admitting Physician: Rosy Padilla MD Primary Care Provider: Jeanette Tadeo APN Chief Complaint: blood sugar issues History of Present Illness Cherry Palm is a 81 year old female with a past medical history of diabetes mellitus, hypothyroidism, hyper cholesterolemia, presented to the emergency room today complaining of increasing generalized weakness, inability to get out of bed, fell off the bed 3 days ago. Patient states she has been receiving steroids for the past 3 weeks so does not recall the name of the steroid. States she has been on steroids for the past 3 weeks, initially for a pinched nerve and lower back pain, though she is unable to specify at this time where the pinched nerve is located. Thereafter she remained on the steroid s due to a poison neeru rash. Over the past 3 days her fatigue has been worsening. She states that 3 nights ago she rolled out of bed and fell to the floor because she felt so fatigued. She came into the emergency room at 8 AM this morning brought in by family due to increasing weakness and confusion. Her son reported that she had been treated for bronchitis in the past few weeks. She was noted to have elevated blood sugars in the 400 range for which she received insulin and IV fluids and improved with recommended discharge to home. She returned back in the evening reporting that her glucose was now in the 500s range. She denies any fever chills sore throat chest pain or dyspnea. She is noted to have a dry cough at the time of assessment. Denies any abdominal pain nausea or vomiting. She still reports generalized weakness and inability to carry out her daily tasks at home.She is alert awake oriented, however tires in conversation and unable to provide any exact history. Review of Systems General: Reports: 10 or more systems reviewed and unremarkable except in HPI and below Const: Denies: fever(s), chills or body aches Eyes: Denies: change in vision, blurry vision or photophobia ENMT: Reports: hoarseness; Denies: throat pain, enlarged tonsils, odynophagia or nasal congestion Card: Denies: chest pain, palpitations, irregular heart rhythm, edema, swelling of feet/ankles, lightheadedness, pre-syncope, dyspnea on exertion or orthopnea Resp: Denies: dyspnea, productive cough, non-productive cough, wheezing, stridor, pain on inspiration, change in phlegm color, hemoptysis or chest congestion GI: Denies: abdominal pain, nausea, vomiting, hematemesis, coffee ground emesis, dysphagia, heartburn, diarrhea, constipation, GI cramping, change in stool character, hematochezia or melena : Denies: flank pain, difficulty voiding, dysuria, urinary frequency, urinary urgency, urinary hesitancy or hematuria Musc: Denies: neck pain, back pain, extremity pain, joint swelling, joint warmth or deformity Neuro: Denies: headache(s), numbness in extremities, weakness in extremities, sensory changes, difficulty walking, frequent falls, dizziness, vertigo, behavioral changes, Slurred speech present or seizure-like activity Psych: Denies: anxiety, depression, suicidal ideation or homicidal ideation Endo: Denies: polyuria, polydipsia, tired all the time, cold intolerance or hot flashes Jem/Lymph: Denies: easy bruising or easy bleeding Medications/Allergies Home Medications Medication Instructions Recorded Confirmed Last Taken Type amlodipine 5 mg tablet 5 mg PO ONCE 11/06/19 11/18/20 Unknown History aspirin 81 mg tablet,delayed 81 mg PO ONCE 11/06/19 11/18/20 Unknown History release clonazepam 0.5 mg tablet 0.5 mg PO ONCE 11/06/19 11/18/20 Unknown History cyanocobalamin (vitamin B-12) 1,000 mcg PO ONCE 11/06/19 11/18/20 Unknown History 1,000 mcg capsule diphenoxylate-atropine 2.5 1 tab PO Q6H PRN 11/06/19 11/18/20 Unknown History mg-0.025 mg tablet empagliflozin 10 mg tablet 10 mg PO QAM 11/06/19 11/18/20 Unknown History (Jardiance) estradiol 2 mg tablet 2 mg PO ONCE 11/06/19 11/18/20 Unknown History glipizide 5 mg tablet 5 mg PO ONCE 11/06/19 11/18/20 Unknown History levothyroxine 137 mcg capsule 137 mcg PO ONCE 11/06/19 11/18/20 Unknown History lovastatin 20 mg tablet 20 mg PO ONCE 11/06/19 11/18/20 Unknown History omega 6-mff-xrs-fish oil 1,000 mg 2 cap PO TID 11/06/19 11/18/20 Unknown History (120 mg-180 mg) capsule (Fish Oil) potassium 99 mg tablet mg PO ONCE 11/06/19 11/18/20 Unknown History sitagliptin 100 mg tablet (Januvia) 100 mg PO ONCE 11/06/19 11/18/20 Unknown History tramadol 50 mg tablet 50 mg PO TID PRN 11/06/19 11/18/20 Unknown History Allergies Allergy/AdvReac Type Severity Reaction Status Date / Time metformin Allergy Mild diarrhea Verified 11/18/20 14:08 chlorzoxazone Allergy ALGY-Rash Verified 08/08/22 08:08 PFSH Acute PFSH: Medical History 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 Family History Grandmother Diabetes Mother Diabetes Social History Smoking and tobacco status: never smoked Alcohol intake: never Lives independently: Yes Household members: spouse Marital status: service: No Current occupational status: retired History of recent travel: No Leisure activites: exercise Vitals/I&O/Wt Last Vital Signs Temp 97.7 F 08/08/22 21:08 Pulse 73 08/09/22 02:45 Resp 17 08/09/22 02:45 BP 175/82 08/09/22 02:45 Pulse Ox 94 08/09/22 02:45 O2 Del Method 08/09/22 02:45 08/08/22 08/08/22 08/09/22 14:59 22:59 06:59 Intake Total 500 / 500 Balance 500 / 500 Weight last 48 hrs Weight 62.596 kg Physical Exam Narrative: Elderly lady lying in bed, appears tired, oriented to time place and person, however tires out in conversation easily. HEENT: PERRLA, pupils bilaterally equal and reactive, pallors not present Chest: Normal vesicular breath sounds, no added sounds, equal good air entry bilaterally CVS: S1-S2 regular, no murmurs, no tachycardia, no gallops, no rubs Abdomen: Soft, nontender, no organomegaly, bowel sounds present Neuro: No focal deficits, no facial deformity, AO x3, power 5/5 in all limbs Extremities: No edema clubbing or cyanosis. Left lower extremity slightly cooler compared to the right side, however palpable dorsalis pedis anterior tibial and posterior tibial pulses bilaterally. Data : 08/09/22 05:35 08/09/22 05:35 A&P Assessment and plan (1) Hyperosmolar hyperglycemic state (HHS): (2) Leukocytosis: (3) Generalized weakness: (4) Fall: Plan 81-year-old lady presenting with increased generalized weakness, fall 3 days ago, back pain, and hyperosmolar hyperglycemic state. #Hyperosmolar hyperglycemic state Blood sugar upon presentation 524, anion gap of 21, positive serum ketones. She has received several doses of insulin in the emergency room. She is also received IV fluids with normal saline due to dehydration. Fingerstick blood glucose now at 280. We will repeat a stat CMP now. If still has an elevated anion gap, will admit to ICU and start insulin drip. If anion gap is resolved we will start medium dose insulin sliding scale. Patient is a type II diabetic, does not typically take insulin. Suspect that hyperglycemia may be precipitated by prolonged steroid use over the last [address] head without signs of acute intracranial abnormalities. Patient noted to have a dry cough during evaluation, chest x-ray without any consolidation, scattered wheezing on auscultation. Add albuterol inhalation. Check COVID PCR Complains of pinched nerves however unable to localize for me at this present time. She points to her bilateral wrists, elbows and lower back. Patient has a past history of cervical spondylosis and lumbar pain. Given history of fall 3 days ago from bed, will check lumbar CT to evaluate for any lumbar compression fractures. She is moving bilateral upper extremities without any restriction at this time. She was able to transfer from bed to stretcher standing on her feet for a short time. PT OT assessment Attestations Medical Necessity Statement*: Observation admission, monitor with IV fluids, correction of hyperglycemia, CT lumbar spine, anticipate less than 2 midnight if all evaluation remains negative. Coding Level of Care Code Acute Medicare Insurance Specialist for Chg Fwd Diagnoses Hyperosmolar hyperglycemic state (HHS) E11.00 Leukocytosis D72.829 Generalized weakness R53.1 Fall W19.XXXA
--- NOTE | 2022-08-09 04:14 | XRR_ITS ---
PROCEDURE INFORMATION: Exam: XR Chest Exam date and time: 08/09/2022 6:38 AM Age: 81 years old Clinical indication: Cough TECHNIQUE: Imaging protocol: Radiologic exam of the chest. Views: 1 view. COMPARISON: CR (CHEST, ) 08/08/2022 9:05 AM FINDINGS: Lungs: There is patchy opacity in the medial left lung base which may represent a left lower lobe pneumonia. The right lung is clear.. Pleural spaces: Unremarkable. No pleural effusion. No pneumothorax. Heart/Mediastinum: Unremarkable. No cardiomegaly. Bones/joints: Unremarkable. XR/XR chest 1V portable [id number] IMPRESSION: There is patchy opacity in the medial left lung base which may be due to a left lower lobe pneumonia.
[2022-08-09 04:15] LABS: Glucose Point of Care 286 mg/dL (70-110)
[2022-08-09 05:47] LABS: Basophils % 0.2 %; Eosinophils # 0.4 10^3/uL (0.0-0.8); Hemoglobin 12.4 g/dL (11.5-15.3); Lymphocytes # 1.4 10^3/uL (0.8-4.8); Lymphocytes % 10.6 %; Mean Corpuscular HGB Conc 34.4 g/dL (30.0-36.0); Mean Corpuscular Hemoglobin 33.2 pg (28.0-34.0); Mean Corpuscular Volume 96.3 fl (81-99); Monocytes # 0.8 10^3/uL (0.2-0.9); Monocytes % 6.5 %; Neutrophils # 10.05 10^3/uL (1.8-7.7); Neutrophils % 78.5 %; Nucleated Red Blood Cells % 0 %; Platelet Count 239 10^3/cmm (130-400); Red Blood Count 3.74 10^6/uL (4.1-5.3); Red Cell Distribution Width 12.6 % (12.1-15.1); White Blood Count 12.8 10^3/uL (4.0-10.0)
[2022-08-09 06:16] LABS: Procalcitonin 0.05 ng/mL (0-0.5)
[2022-08-09 06:17] LABS: Thyroid Stimulating Hormone 0.49 uIU/mL (0.27-4.20)
[2022-08-09 06:29] LABS: Alanine Aminotransferase 24 U/L (0-33); Albumin Level 2.8 g/dL (3.5-5.2); Alkaline Phosphatase 104 U/L (35-105); Anion Gap 16.1 (5-19); Aspartate Amino Transferase 15 U/L (0-32); Blood Urea Nitrogen 21 mg/dL (8-23); Calcium 9.1 mg/dL (8.5-10.5); Carbon Dioxide 23 mmol/L (22-29); Chloride 100 mmol/L (98-107); Creatine Phosphokinase 49 U/L (26-192); Globulin 3.1 g/dL (1.3-4.6); Glucose 302 mg/dL (65-115); Osmolality Calculated 294 mOsm/kg (285-295); Potassium 4.1 mmol/L (3.5-5.1); Sodium 135 mmol/L (136-145); Total Bilirubin 0.3 mg/dL (0.15-1.2); Total Protein 5.9 g/dL (6.6-8.7)
--- NOTE | 2022-08-09 06:32 | CTR_ITS ---
PROCEDURE INFORMATION: Exam: CT Lumbar Spine Without Contrast Exam date and time: 08/09/2022 8:27 AM Age: 81 years old Clinical indication: Low back pain; Additional info: Pain over lower back, difficulty standing, pain over back, recent fall, evaluate for lumbar compression TECHNIQUE: Imaging protocol: Computed tomography of the lumbar spine without contrast. Radiation optimization: All CT scans at this facility use at least one of these dose optimization techniques: automated exposure control; mA and/or kV adjustment per patient size (includes targeted exams where dose is matched to clinical indication); or iterative reconstruction. COMPARISON: MR hip LT wo con* [id number] 11/07/2020 3:06 PM RADIATION DOSE METRICS: Total DLP (mGy-cm): 482.52 FINDINGS: Bones/joints: No acute fracture. There is mild lumbar scoliosis convex to the right. No spondylolisthesis. Chronic degenerative disc disease is present with disc space narrowing sclerosis and osteophytes especially at the L2-L3 level. There is diffuse disc protrusion at the L2-L3, L3-L4 and L4-L5 levels with moderate spinal stenosis at L2-L3 and L3-L4. There is mild spinal stenosis at L4-L5. Soft tissues: Unremarkable. CT/CT lumbar spine wo con* [id number] IMPRESSION: 1. No acute findings. 2. Chronic degenerative disc disease with disc protrusions and moderate spinal stenosis at L2-L3 and L3-L4 and mild spinal stenosis at L4-L5.
[2022-08-09 06:57] LABS: Glucose Point of Care 312 mg/dL (70-110)
[2022-08-09 08:12] LABS: Estmated Average Glucose 280; Hemoglobin A1C 11.4 % (4.0-6.0)
[2022-08-09 08:37] LABS: Adenovirus Not Detected (NOT DETECT); Chlamydia Pneumoniae Not Detected (NOT DETECT); Coronavirus 229E,HKU1,NL63,OC4 Not Detected (NOT DETECT); Human Metapneumovirus Not Detected (NOT DETECT); Human Rhinovirus/Enterovirus Detected (NOT DETECT); Influenza A Not Detected (NOT DETECT); Influenza A H1 Not Detected (NOT DETECT); Influenza A H1-2009 Not Detected (NOT DETECT); Influenza A H3 Not Detected (NOT DETECT); Influenza B Not Detected (NOT DETECT); Mycoplasma Pneumoniae Not Detected (NOT DETECT); Parainfluenza Virus Type 1 Not Detected (NOT DETECT); Parainfluenza Virus Type 2 Not Detected (NOT DETECT); Parainfluenza Virus Type 3 Not Detected (NOT DETECT); Parainfluenza Virus Type 4 Not Detected (NOT DETECT); Respiratory Syncytial Virus A Not Detected (NOT DETECT); Respiratory Syncytial Virus B Not Detected (NOT DETECT); SARS-COV-2 Not Detected (NOT DETECT)
[2022-08-09 08:51] LABS: Human Metapneumovirus Not Detected (NOT DETECT); Human Rhinovirus/Enterovirus Detected (NOT DETECT); Results from Genmark
[2022-08-09] MEDS: sodium chloride 0.9% 1,000 ML 75 ML IV (09:00)
[2022-08-09] MEDS: aspirin 81 mg EC Tablet PO (09:03)
[2022-08-09] MEDS: pantoprazole DR 40 mg Tablet PO (09:03)
[2022-08-09] MEDS: insulin glargine 100 units/1 mL 5 UNIT SUBCUT ×2 (09:20→21:35)
[2022-08-09] MEDS: insulin lispro 100 unit/1 mL SUBCUT ×3 (09:21→21:35)
[2022-08-09] MEDS: azithromycin 500 MG in sodium chloride 0.9% 250 ML 250 MG IV (09:22)
[2022-08-09 10:57] LABS: Glucose Point of Care 377 mg/dL (70-110)
[2022-08-09 11:09] LABS: Glucose Urine UA 4+ (Normal); Protein Urine Neg (Negative); Urine Appearance Clear (CLEAR); Urine Color Straw (Yellow); pH Urine 5 (5-7)
[2022-08-09 11:10] LABS: Add Urine Culture? No; Add Urine Microscopic? YES; Bacteria Urine 1+ /hpf; Bilirubin Urine Neg (Negative); Blood Urine 2+ (Negative); Ketones Urine 2+ (Negative); Leukocyte Esterase Urine 2+ (Negative); Nitrate Urine Negative (Negative); RBC Urine 0-4 /hpf (0-2); Urobilinogen Urine Norm (Negative)
[2022-08-09] MEDS: cefTRIAXone 1,000 MG in sodium chloride 0.9% (plus) 50 ML 100 MG IV (11:40)
[2022-08-09] MEDS: levothyroxine 137 mcg Tablet PO (11:42)
--- NOTE | 2022-08-09 14:14 | PM.PN ---
Subjective Subjective: Patient was seen this morning, she is sitting up to side of bed, enjoying breakfast, she is alert to person, to place, to time, she does complain of weakness, no shortness of breath Vitals/I&O/Wt Last Vital Signs Temp 97.7 F 08/09/22 11:47 Pulse 78 08/09/22 11:47 Resp 16 08/09/22 11:47 BP 132/76 08/09/22 11:47 Pulse Ox 98 08/09/22 11:47 O2 Del Method 08/09/22 11:47 O2 Flow Rate 2 08/09/22 09:28 08/08/22 08/09/22 08/09/22 22:59 06:59 14:59 Intake Total 500 / 500 577.5 / 577.5 Output Total 0 / 0 Balance 500 / 500 577.5 / 577.5 Weight last 48 hrs Weight 62.596 kg Physical Exam Const: COMMON NORMALS: no acute distress and patient oriented x3 Resp: COMMON NORMALS: normal respiratory effort, No retractions, No use of accessory muscles and clear to auscultation bilaterally AUSCULTATION: clear to auscultation bilaterally Cardio: COMMON NORMALS: regular rate, regular rhythm, S1 normal heart sound present and S2 normal heart sound present RATE: regular rate RHYTHM: regular rhythm HEART SOUNDS: S1 normal heart sound present and S2 normal heart sound present GI: COMMON NORMALS: Normal to inspection, nondistended, normoactive bowel sounds present and non-tender Extremity: COMMON NORMALS: no pedal edema Neuro: COMMON NORMALS: patient oriented x3 Psych: COMMON NORMALS: mental status grossly normal Data : 08/09/22 05:35 08/09/22 05:35 Micro: Microbiology 08/09/22 08:05 Blood Culture - Preliminary Blood SPECIMEN COLLECTED 08/09/22 07:55 Blood Culture - Preliminary Blood SPECIMEN COLLECTED A&P Assessment and plan (1) Hyperosmolar hyperglycemic state (HHS): (2) Leukocytosis: (3) Generalized weakness: (4) Fall: (5) Pneumonia: (6) UTI (urinary tract infection): Plan 81-year-old lady presenting with increased generalized weakness, fall 3 days ago, back pain, and hyperosmolar hyperglycemic state. #Hyperosmolar hyperglycemic state -Resolved Blood sugar upon presentation 524, anion gap of 21, positive serum ketones. She has received several doses of insulin in the emergency room. She is also received IV fluids with normal saline due to dehydration. Fingerstick blood glucose now at 280. Hba1c 11.4 -Lantus 5 units twice daily, sliding scale CT head without signs of acute intracranial abnormalities. Patient noted to have a dry cough during evaluation, chest x-ray concerns for left lower lobe pneumonia, scattered wheezing on auscultation rhinovirus positive, start Rocephin and azithromycin UTI, continue Rocephin Complains of pinched nerves however unable to localize for me at this present time. She points to her bilateral wrists, elbows and lower back. Patient has a past history of cervical spondylosis and lumbar pain. Given history of fall 3 days ago from bed, CT lumbar spine shows spinal, stenosis, with disc retrusion. She is moving bilateral upper extremities without any restriction at this time. She was able to transfer from bed to stretcher standing on her feet for a short time. PT OT assessment Attestations Medical Necessity Statement*: Patient requires hospitalization, inpatient, greater than 2 midnights, for spinal stenosis, UTI, pneumonia, HHS Coding Level of Care Code Acute 1St Grade Teacher for Chg Fwd Diagnoses Hyperosmolar hyperglycemic state (HHS) E11.00 Leukocytosis D72.829 Generalized weakness R53.1 Fall W19.XXXA Pneumonia J18.9 UTI (urinary tract infection) N39.0
[2022-08-09 16:57] LABS: Glucose Point of Care 93 mg/dL (70-110)
[2022-08-09 21:20] LABS: Glucose Point of Care 239 mg/dL (70-110)
[2022-08-10] VITALS (11 sets, daily range): BP systolic 133–149; BP diastolic 69–91; PULSE 80–105; RESP 16–24; TEMP 36.4–36.9; O2SAT 91–97
[2022-08-10] MEDS: sodium chloride 0.9% 1,000 ML 75 ML IV (01:21)
[2022-08-10 05:38] LABS: Basophils # 0.1 10^3/uL (0.0-0.1); Basophils % 0.6 %; Eosinophils # 0.5 10^3/uL (0.0-0.8); Eosinophils % 3.8 %; Hematocrit 40.3 % (37.0-47.0); Hemoglobin 13.2 g/dL (11.5-15.3); Lymphocytes # 1.8 10^3/uL (0.8-4.8); Lymphocytes % 13.1 %; Mean Corpuscular HGB Conc 32.8 g/dL (30.0-36.0); Mean Corpuscular Hemoglobin 32.5 pg (28.0-34.0); Mean Corpuscular Volume 99.3 fl (81-99); Mean Platelet Volume 10.9 fL (7.4-10.4); Monocytes # 0.8 10^3/uL (0.2-0.9); Monocytes % 5.6 %; Neutrophils % 75.8 %; Nucleated Red Blood Cells % 0 %; Platelet Count 185 10^3/cmm (130-400); Red Blood Count 4.06 10^6/uL (4.1-5.3); Red Cell Distribution Width 12.5 % (12.1-15.1); White Blood Count 13.9 10^3/uL (4.0-10.0)
[2022-08-10 05:54] LABS: Anion Gap 15.6 (5-19); Blood Urea Nitrogen 11 mg/dL (8-23); Calcium 8.9 mg/dL (8.5-10.5); Carbon Dioxide 22 mmol/L (22-29); Chloride 101 mmol/L (98-107); Glucose 183 mg/dL (65-115); Magnesium 1.5 mg/dL (1.7-2.3); Osmolality Calculated 284 mOsm/kg (285-295); Potassium 3.6 mmol/L (3.5-5.1); Sodium 135 mmol/L (136-145)
[2022-08-10 06:47] LABS: Glucose Point of Care 312 mg/dL (70-110)
[2022-08-10] MEDS: azithromycin 500 MG in sodium chloride 0.9% 250 ML 250 MG IV (11:45)
[2022-08-10] MEDS: insulin glargine 100 units/1 mL 5 UNIT SUBCUT (11:45)
[2022-08-10] MEDS: levothyroxine 137 mcg Tablet PO (11:50)
[2022-08-10] MEDS: pantoprazole DR 40 mg Tablet PO (11:50)
[2022-08-10] MEDS: insulin lispro 100 unit/1 mL SUBCUT ×3 (11:50→22:07)
[2022-08-10] MEDS: aspirin 81 mg EC Tablet PO (11:50)
[2022-08-10] MEDS: cefTRIAXone 1,000 MG in sodium chloride 0.9% (plus) 50 ML 75 MG IV (12:04)
--- NOTE | 2022-08-10 16:03 | P.PN_ITS ---
Vitals/I&O/Wt Last Vital Signs Temp 97.7 F 08/10/22 11:00 Pulse 104 H 08/10/22 11:00 Resp 18 08/10/22 11:00 BP 138/83 08/10/22 11:00 Pulse Ox 92 08/10/22 11:00 O2 Del Method 08/10/22 11:00 O2 Flow Rate 2 08/09/22 09:28 08/10/22 08/10/22 08/10/22 06:59 14:59 22:59 Intake Total 600 / 600 Balance 600 / 600 Weight last 48 hrs Weight 62.596 kg Physical Exam Const: COMMON NORMALS: no acute distress and patient oriented x3 Resp: COMMON NORMALS: normal respiratory effort, No retractions, No use of accessory muscles and clear to auscultation bilaterally AUSCULTATION: clear to auscultation bilaterally Cardio: COMMON NORMALS: regular rate, regular rhythm, S1 normal heart sound present and S2 normal heart sound present RATE: regular rate RHYTHM: regular rhythm HEART SOUNDS: S1 normal heart sound present and S2 normal heart sound present GI: COMMON NORMALS: Normal to inspection, nondistended, normoactive bowel sounds present and non-tender Extremity: COMMON NORMALS: no pedal edema Neuro: COMMON NORMALS: patient oriented x3 Psych: COMMON NORMALS: mental status grossly normal Data : 08/10/22 05:15 08/10/22 05:15 Micro: Microbiology 08/09/22 08:05 Blood Culture - Preliminary Blood NEGATIVE TO DATE 08/09/22 07:55 Blood Culture - Preliminary Blood NEGATIVE TO DATE A&P Assessment and plan (1) Hyperosmolar hyperglycemic state (HHS): (2) Leukocytosis: (3) Generalized weakness: (4) Fall: (5) Pneumonia: (6) UTI (urinary tract infection): Plan 81-year-old lady presenting with increased generalized weakness, fall 3 days ago, back pain, and hyperosmolar hyperglycemic state. #Hyperosmolar hyperglycemic state -Resolved Blood sugar upon presentation 524, anion gap of 21, positive serum ketones. She has received several doses of insulin in the emergency room. She is also received IV fluids with normal saline due to dehydration. Fingerstick blood glucose now at 280. Hba1c 11.4 -Lantus 8 units twice daily, sliding scale she will be dc on lantus and to continue januvia at home. She was tapered off steroid [address] head without signs of acute intracranial abnormalities. Patient noted to have a dry cough during evaluation, chest x-ray concerns for left lower lobe pneumonia, scattered wheezing on auscultation rhinovirus positive, continue Rocephin and azithromycin UTI, continue Rocephin Complains of pinched nerves however unable to localize for me at this present time. She points to her bilateral wrists, elbows and lower back. Patient has a past history of cervical spondylosis and lumbar pain. Given history of fall 3 days ago from bed, CT lumbar spine shows spinal, stenosis, with disc retrusion. She is moving bilateral upper extremities without any restriction at this time. She was able to transfer from bed to stretcher standing on her feet for a short time. PT OT assessment Dispo: DC in AM on lantus Will need new PCP. Family prefers Dr. Simpson Attestations Medical Necessity Statement*: Patient requires hospitalization, inpatient, greater than 2 midnights, for spinal stenosis, UTI, pneumonia, HHS Coding Level of Care Code Acute [place] Operator for Chg Fwd Diagnoses Hyperosmolar hyperglycemic state (HHS) E11.00 Leukocytosis D72.829 Generalized weakness R53.1 Fall W19.XXXA Pneumonia J18.9 UTI (urinary tract infection) N39.0
[2022-08-10 16:58] LABS: Glucose Point of Care 413 mg/dL (70-110)
[2022-08-10] MEDS: magnesium sulfate premix 2 GM/50 ML PIGGYBACK IV (18:45)
[2022-08-10 21:51] LABS: Glucose Point of Care 208 mg/dL (70-110)
[2022-08-10] MEDS: insulin glargine 100 units/1 mL 8 UNIT SUBCUT (22:16)
[2022-08-11] MEDS: sodium chloride 0.9% 1,000 ML 75 ML IV (02:06)
[2022-08-11 03:00] VITALS: BP 170/91; PULSE 94; RESP 22; TEMP 36.6; O2SAT 95
[2022-08-11 04:56] LABS: Basophils # 0.1 10^3/uL (0.0-0.1); Basophils % 0.5 %; Eosinophils # 0.5 10^3/uL (0.0-0.8); Eosinophils % 4.6 %; Hematocrit 37.8 % (37.0-47.0); Hemoglobin 12.6 g/dL (11.5-15.3); Lymphocytes # 1.4 10^3/uL (0.8-4.8); Lymphocytes % 12.3 %; Mean Corpuscular HGB Conc 33.3 g/dL (30.0-36.0); Mean Corpuscular Hemoglobin 32.3 pg (28.0-34.0); Mean Corpuscular Volume 96.9 fl (81-99); Mean Platelet Volume 9.7 fL (7.4-10.4); Monocytes # 0.6 10^3/uL (0.2-0.9); Monocytes % 5.3 %; Neutrophils # 8.75 10^3/uL (1.8-7.7); Neutrophils % 76.2 %; Nucleated Red Blood Cells % 0 %; Platelet Count 223 10^3/cmm (130-400); Red Cell Distribution Width 12.7 % (12.1-15.1); White Blood Count 11.5 10^3/uL (4.0-10.0)
[2022-08-11 05:10] LABS: Anion Gap 15.7 (5-19); Blood Urea Nitrogen 8 mg/dL (8-23); Calcium 8.5 mg/dL (8.5-10.5); Carbon Dioxide 23 mmol/L (22-29); Chloride 100 mmol/L (98-107); Glucose 135 mg/dL (65-115); Magnesium 1.9 mg/dL (1.7-2.3); Osmolality Calculated 280 mOsm/kg (285-295); Potassium 3.7 mmol/L (3.5-5.1); Sodium 135 mmol/L (136-145)
[2022-08-11 06:00] VITALS: PULSE 88
[2022-08-11 06:51] LABS: Glucose Point of Care 166 mg/dL (70-110)
[2022-08-11 07:00] VITALS: BP 165/87; PULSE 92; RESP 14; TEMP 36.4; O2SAT 95
[2022-08-11] MEDS: insulin glargine 100 units/1 mL 8 UNIT SUBCUT (07:30)
[2022-08-11] MEDS: insulin lispro 100 unit/1 mL SUBCUT (07:30)
[2022-08-11] MEDS: aspirin 81 mg EC Tablet PO (07:31)
[2022-08-11] MEDS: pantoprazole DR 40 mg Tablet PO (07:31)
[2022-08-11] MEDS: levothyroxine 137 mcg Tablet PO (07:31)
[2022-08-11 09:00] VITALS: PULSE 97; RESP 16; O2SAT 95
[2022-08-11 11:00] VITALS: BP 168/109; PULSE 104; RESP 14; O2SAT 94
[2022-08-11 11:22] LABS: Glucose Point of Care 263 mg/dL (70-110)
--- NOTE | 2022-08-11 12:21 | P.DS_ITS ---
Discharge Providers Date of Admission: 08/09/22 15:21 Date of Discharge: August 11, 2022 Attending Provider at Admission: Rosy Padilla MD Attending Provider at Discharge: Irish Jensen MD Primary Care Provider: Jeanette Tadeo APN Diagnoses at Discharge Discharge Diagnosis (1) Hyperosmolar hyperglycemic state (HHS): Status: Resolved (2) Leukocytosis: Status: Resolved (3) Generalized weakness: Status: Resolved (4) Fall: Status: Acute (5) Pneumonia: Status: Acute (6) UTI (urinary tract infection): Status: Acute Reason for Visit Reason for Visit: blood sugar issues Brief History: [place] is a 81 year old female with a past medical history of diabetes mellitus, hypothyroidism, hyper cholesterolemia, presented to the emergency room today complaining of increasing generalized weakness, inability to get out of bed, fell off the bed 3 days ago.? Patient states she has been receiving steroids for the past 3 weeks so does not recall the name of the steroid.? States she has been on steroids for the past 3 weeks, initially for a pinched nerve and lower back pain, though she is unable to specify at this time where the pinched nerve is located.? Thereafter she remained on the steroids due to a poison neeru rash.? Over the past 3 days her fatigue has been worsening.? She states that 3 nights ago she rolled out of bed and fell to the floor because she felt so fatigued.? She came into the emergency room at 8 AM this morning brought in by family due to increasing weakness and confusion.? Her son reported that she had been treated for bronchitis in the past few weeks.? She was noted to have elevated blood sugars in the 400 range for which she received insulin and IV fluids and improved with recommended discharge to home.? She returned back in the evening reporting that her glucose was now in the 500s range.? She denies any fever chills sore throat chest pain or dyspnea.? She is noted to have a dry cough at the time of assessment.? Denies any abdominal pain nausea or vomiting.? She still reports generalized weakness and inability to carry out her daily tasks at home.She is alert awake oriented, however tires in conversation and unable to provide any exact history. Hospital Course Hospital Course Patient admitted for hyperosmolar hyperglycemic state. Insulin adjusted. CT scan without acute intracranial abnormalities. A1c 11.4. Patient discharged home on insulin. Patient given strict instructions on blood sugar. Family member updated in the room. Patient requested new PCP and will follow up with Dr. Simpson at discharge. Endocrinology follow-up also given as per family request. Home health set up for the patient. Levothyroxine dose adjusted and decreased slightly. On day of discharge patient states she is not confused at all and finally can think straight. She feels back to normal. Sent home on Augmentin to complete course for UTI and pneumonia. Physical Exam Const: COMMON NORMALS: no acute distress and patient oriented x3 Resp: COMMON NORMALS: normal respiratory effort, No retractions, No use of accessory muscles and clear to auscultation bilaterally AUSCULTATION: clear to auscultation bilaterally Cardio: COMMON NORMALS: regular rate, regular rhythm, S1 normal heart sound present and S2 normal heart sound present RATE: regular rate RHYTHM: reg ular rhythm HEART SOUNDS: S1 normal heart sound present and S2 normal heart sound present GI: COMMON NORMALS: Normal to inspection, nondistended, normoactive bowel sounds present and non-tender Extremity: COMMON NORMALS: no pedal edema Neuro: COMMON NORMALS: patient oriented x3 Psych: COMMON NORMALS: mental status grossly normal Discharge Data Studies Completed and Pending Completed Studies During Hospitalization Category Date Time Status CT lumbar spine wo con* [id number] Routine Cat Scan 08/09/22 06:32 Completed XR chest 1V portable [id number] Routine Exams 08/09/22 04:14 Completed Pending at discharge Category Date Time Status Basic Metabolic Panel AM LABS Lab 08/12/22 04:00 Ordered Blood Culture Stat Lab 08/09/22 08:05 Results Complete Blood Count w/Auto AM LABS Lab 08/12/22 04:00 Ordered Magnesium AM LABS Lab 08/12/22 04:00 Ordered Radiology Impressions Chest X-Ray 08/09/22 04:14 IMPRESSION: There is patchy opacity in the medial left lung base which may be due to a left lower lobe pneumonia. Lumbar Spine CT 08/09/22 06:32 IMPRESSION: 1. No acute findings. 2. Chronic degenerative disc disease with disc protrusions and moderate spinal stenosis at L2-L3 and L3-L4 and mild spinal stenosis at L4-L5. Laboratory Results WBC 11.5 10^3/uL (4.0-10.0) H 08/11/22 04:25 RBC 3.90 10^6/uL (4.1-5.3) L 08/11/22 04:25 Hgb 12.6 g/dL (11.5-15.3) 08/11/22 04:25 Hct 37.8 % (37.0-47.0) 08/11/22 04:25 MCV 96.9 fl (81-99) 08/11/22 04:25 MCH 32.3 pg (28.0-34.0) 08/11/22 04:25 MCHC 33.3 g/dL (30.0-36.0) 08/11/22 04:25 RDW 12.7 % (12.1-15.1) 08/11/22 04:25 Plt Count 223 10^3/cmm (130-400) 08/11/22 04:25 MPV 9.7 fL (7.4-10.4) 08/11/22 04:25 Neut % (Auto) 76.2 % 08/11/22 04:25 Lymph % (Auto) 12.3 % 08/11/22 04:25 [place] % (Auto) 5.3 % 08/11/22 04:25 Eos % (Auto) 4.6 % 08/11/22 04:25 Baso % (Auto) 0.5 % 08/11/22 04:25 Neut # (Auto) 8.75 10^3/uL (1.8-7.7) H 08/11/22 04:25 Lymph # (Auto) 1.4 10^3/uL (0.8-4.8) 08/11/22 04:25 [place] # (Auto) 0.6 10^3/uL (0.2-0.9) 08/11/22 04:25 Eos # (Auto) 0.5 10^3/uL (0.0-0.8) 08/11/22 04:25 Baso # (Auto) 0.1 10^3/uL (0.0-0.1) 08/11/22 04:25 Nucleated RBC % (auto) 0 % 08/11/22 04:25 Nucleated RBCs # 0.0 /100WBC 08/11/22 04:25 Specimen Type Arterial 08/08/22 00:35 Sample Site radial,right 08/08/22 00:35 ABG pH 7.40 (7.35-7.45) 08/08/22 00:35 ABG pCO2 34.1 mmHg (35-45) L 08/08/22 00:35 ABG pO2 74.8 mmHg (80.0-100.0) L 08/08/22 00:35 ABG HCO3 20.8 mmol/L (22-26) L 08/08/22 00:35 ABG Base Excess -3.4 mmol/L (-2.0-2.0) L 08/08/22 00:35 Yared Test Pos 08/08/22 00:35 Hematocrit 37.2 % (37-47) 08/08/22 00:35 O2 Delivery Device room air 08/08/22 00:35 Forestry Laborer ID [email or web address] 08/08/22 00:35 Sodium 135 mmol/L (136-145) L 08/11/22 04:25 Potassium 3.7 mmol/L (3.5-5.1) 08/11/22 04:25 Chloride 100 mmol/L (98-107) 08/11/22 04:25 Carbon Dioxide 23 mmol/L (22-29) 08/11/22 04:25 Anion Gap 15.7 (5-19) 08/11/22 04:25 BUN 8 mg/dL (8-23) 08/11/22 04:25 Creatinine 0.6 mg/dL (0.5-0.9) 08/11/22 04:25 GFR Calculation Not Reportable 08/11/22 04:25 Glucose 135 mg/dL (65-115) H 08/11/22 04:25 POC Glucose 263 mg/dL (70-110) H 08/11/22 11:17 Estimat Average Glucose 280 08/09/22 05:35 Hemoglobin A1c 11.4 % (4.0-6.0) H 08/09/22 05:35 Calculated Osmolality 280 mOsm/kg (285-295) L 08/11/22 04:25 Calcium 8.5 mg/dL (8.5-10.5) 08/11/22 04:25 Magnesium 1.9 mg/dL (1.7-2.3) 08/11/22 04:25 Total Bilirubin 0.3 mg/dL (0.15-1.2) 08/09/22 05:35 AST 15 U/L (0-32) 08/09/22 05:35 ALT 24 U/L (0-33) 08/09/22 05:35 Alkaline Phosphatase 104 U/L (35-105) 08/09/22 05:35 Creatine Kinase 49 U/L (26-192) 08/09/22 05:35 Troponin T Baseline 37 ng/L (0-10) H 08/08/22 21:45 Troponin T 120 Minute 34.86 ng/L (0-10) H 08/08/22 23:30 Delta Troponin T -2.14 ABS# (0-10) L 08/08/22 23:30 Total Protein 5.9 g/dL (6.6-8.7) L 08/09/22 05:35 Albumin 2.8 g/dL (3.5-5.2) L 08/09/22 05:35 Globulin 3.1 g/dL (1.3-4.6) 08/09/22 05:35 Procalcitonin 0.05 ng/mL (0-0.5) 08/09/22 05:35 TSH 0.49 uIU/mL (0.27-4.20) 08/09/22 05:35 Urine Color Straw (Yellow) 08/09/22 10:39 Urine Appearance Clear (CLEAR) 08/09/22 10:39 Urine pH 5 (5-7) 08/09/22 10:39 Ur Specific Anna 1.020 (1.005-1.030) 08/09/22 10:39 Urine Protein Neg (Negative) 08/09/22 10:39 Urine Glucose (UA) 4+ (Normal) H 08/09/22 10:39 Urine Ketones 2+ (Negative) H 08/09/22 10:39 Urine Blood 2+ (Negative) H 08/09/22 10:39 Urine Nitrate Negative (Negative) 08/09/22 10:39 Urine Bilirubin Neg (Negative) 08/09/22 10:39 Urine Urobilinogen Norm mg/dL (Negative) 08/09/22 10:39 Ur Leukocyte Esterase 2+ (Negative) H 08/09/22 10:39 Urine RBC 0-4 /hpf (0-2) H 08/09/22 10:39 Urine WBC 5-10 /hpf (0-5) H 08/09/22 10:39 Ur Squamous Epith Cells 10-15 /hpf (0-5) H 08/09/22 10:39 Amorphous Sediment Not Reportable 08/09/22 10:39 Urine Bacteria 1+ /hpf (NONE) H 08/09/22 10:39 Serum Ketones Positive (Negative) H 08/08/22 23:30 Coronavirus 229E (PCR) Not detected (NOT DETECT) 08/09/22 04:44 Human Metapneumovir PCR Not detected (NOT DETECT) 08/09/22 08:51 Entero/Rhino (PCR) Detected (NOT DETECT) A 08/09/22 08:51 SARS-CoV-2 (PCR) Not detected (NOT DETECT) 08/09/22 04:44 Vitals Last Vital Signs Temp 97.6 F 08/11/22 07:00 Pulse 104 H 08/11/22 11:00 Resp 14 08/11/22 11:00 BP 168/109 08/11/22 11:00 Pulse Ox 94 08/11/22 11:00 O2 Del Method 08/11/22 11:00 O2 Flow Rate 2 08/09/22 09:28 Discharge Plan Discharge Patient Disposition: Home Health Service Condition: Stable Prescriptions: New insulin glargine 100 unit/mL Solution 8 unit SUBCUT Q12H 14 Days Qty: 2.24 0RF levothyroxine 137 mcg Tablet 137 mcg PO DAILY 30 Days Qty: 30 0RF amlodipine 10 mg tablet 10 mg PO DAILY 30 Days Qty: 30 0RF Humalog U-100 Insulin 100 unit/mL Solution See Rx Instructions .ROUTE .COMPLEX Qty: 10 0RF Rx Instructions: 141-180-4 units 181-220 6 units 221-260 8 units 261-300 10 units 301-350 12 units 351-400 16 units Continued estradiol 2 mg tablet 2 mg PO DAILY omega 5-dpv-wme-fish oil [Fish Oil] 1,000 mg (120 mg-180 mg) capsule 2 cap PO TID cyanocobalamin (vitamin B-12) 1,000 mcg capsule 1,000 mcg PO DAILY aspirin 81 mg tablet,delayed release (DR/EC) 81 mg PO DAILY metoprolol succinate 50 mg tablet extended release 24 hr 50 mg PO BEDTIME lovastatin 40 mg Tablet 40 mg PO DAILY Claritin 10 mg Tablet 10 mg PO DAILY Held Januvia 100 mg tablet 100 mg PO DAILY Hold Instructions: see pcp clonazepam 0.5 mg tablet 0.5 - 1 mg PO TID PRN (Reason: Anxiety) Hold Instructions: see pcp diphenoxylate-atropine 2.5-0.025 mg tablet 1 tab PO Q6H PRN (Reason: Diarrhea) Hold Instructions: see pcp Discontinued amlodipine 5 mg tablet 5 mg PO DAILY azithromycin 250 mg tablet See Rx Instructions .ROUTE .COMPLEX Rx Instructions: 500 mg po on day 1 then 250 mg po on day 2-5 glipizide 5 mg tablet extended release 24hr 5 mg PO BID levothyroxine 150 mcg tablet 150 mcg PO DAILY Discharge Orders: Discharge Order (Routine); Ordered 08/11/22 Ordered By: Irish Jensen Referrals: [facility] [Outside] Justine Rubio MD [Physician] - 1 week Zach Simpson MD [Staff Physician] - 09/15/22 1:50 pm (This will be a new patient appointment to establish care w/ Dr. Simpson.) Jenifer Tadeo FNP [Referring] - 1-3 days Discharge Diet: Advance as tolerated and Diabetic Discharge Activity: Increase activity as tolerated Patient Instructions: Levothyroxine (By mouth), Amoxicillin/Clavulanate Potassium (By mouth), Amlodipine (By mouth), Insulin Lispro Protamine/Insulin Lispro (By injection), Insulin Glargine (By injection), Urinary Tract Infection in Women (GEN), Pneumonia (GEN), Opioid Safety Activity Restrictions/Additional Instructions: Come back if you have any new or concerning issues. Please check blood sugar first thing in morning in fasting state and then again 2 hours post meal. Please see your primary care doctor for adjustment of medications. Watch out for hypoglycemia symptoms. Please monitor your blood pressure and keep a blood pressure log sheet to take to your primary care doctor. Please do not take your short acting insuling if you skip a meal. Discharge Attestations Time Spent in Discharge Care*: greater than 30 min Quality Metrics Clinical Quality Measures [ No reported AMI, CVA or VTE this stay] Coding Level of Care Code Acute Chg FW DC note Diagnoses Hyperosmolar hyperglycemic state (HHS) E11.00 Leukocytosis D72.829 Generalized weakness R53.1 Fall W19.XXXA Pneumonia J18.9 UTI (urinary tract infection) N39.0
[2022-08-11 14:28] VITALS: BP 168/109; PULSE 104; RESP 14; O2SAT 94
== END 2022-08-11 13:30 | disposition home health service (06) | DRG 637 ==
LOC: ER 08-09 00:29 → MEDSURG 08-09 02:38
PROVIDERS: Emergency Medicine; Family Medicine; Admitting Provider Student in an Organized Health Care Education/Training Program; Emergency Provider Physician Assistant; PCP Nurse Practitioner Family; Visit Provider Internal Medicine
DX: E11.00 Type 2 diabetes mellitus with hyperosmolarity without nonketotic hyperglycemic-hyperosmolar coma (NKHHC) (principal); J18.9 Pneumonia, unspecified organism; N39.0 Urinary tract infection, site not specified; M47.12 Other spondylosis with myelopathy, cervical region; E03.9 Hypothyroidism, unspecified; M48.02 Spinal stenosis, cervical region; M54.50 Low back pain, unspecified; W06.XXXA Fall from bed, initial encounter; B34.8 Other viral infections of unspecified site; R53.1 Weakness; R41.0 Disorientation, unspecified; D72.829 Elevated white blood cell count, unspecified; E78.00 Pure hypercholesterolemia, unspecified; Z79.52 Long term (current) use of systemic steroids; Z79.84 Long term (current) use of oral hypoglycemic drugs; Z79.82 Long term (current) use of aspirin; Z79.899 Other long term (current) drug therapy; Z20.822 Contact with and (suspected) exposure to COVID-19
CPT/HCPCS: 36415; 36416; 36600; 70450; 71045; 72131; 80048; 80053; 81001; 81003; 82009; 82550; 82803; 82962; 83036; 83735; 84145; 84443; 84484; 85025; 87040; 87635; 87801; 93005; 96361; 96372; 96374; 97116; 97161; 99285; G0378; J0456; J0696; J1815; J3475; J7030; J7040; J7050

== ENCOUNTER → 2022-11-17 19:37 | Outpatient (BNVA) | payer MEDICARE, OTHER, SELFPAY | PROVIDERS: PCP Family Medicine; Visit Provider Nurse Practitioner Family | DX: J02.9 Acute pharyngitis, unspecified (principal) | CPT/HCPCS: 87071; 87880 ==

== ENCOUNTER → 2022-12-17 08:12 | Outpatient (BNVA) | payer MEDICARE, OTHER, SELFPAY | PROVIDERS: PCP Family Medicine; Visit Provider Family Medicine | DX: E11.9 Type 2 diabetes mellitus without complications (principal); I10 Essential (primary) hypertension; R60.0 Localized edema; J18.9 Pneumonia, unspecified organism | CPT/HCPCS: 80053; 80061; 83036 ==

== ENCOUNTER → 2023-06-21 09:58 | Outpatient (BNVA) | payer MEDICARE, OTHER, SELFPAY | PROVIDERS: PCP Family Medicine; Visit Provider Family Medicine | DX: I10 Essential (primary) hypertension (principal); E11.9 Type 2 diabetes mellitus without complications | CPT/HCPCS: 80053; 80061; 83036 ==

== ENCOUNTER → 2023-12-21 09:10 | Outpatient (BNVA) | payer MEDICARE, OTHER, SELFPAY | PROVIDERS: PCP Family Medicine; Visit Provider Family Medicine | DX: E11.9 Type 2 diabetes mellitus without complications (principal); I10 Essential (primary) hypertension; M79.10 Myalgia, unspecified site; E78.5 Hyperlipidemia, unspecified; E03.9 Hypothyroidism, unspecified | CPT/HCPCS: 80053; 80061; 83036; 84443 ==

== ENCOUNTER → 2024-03-07 10:37 | Outpatient (BNVA) | payer MEDICARE, OTHER, SELFPAY | PROVIDERS: PCP Family Medicine; Visit Provider Family Medicine | DX: R60.9 Edema, unspecified (principal); I10 Essential (primary) hypertension | CPT/HCPCS: 80053; 83880; 85025 ==

== ENCOUNTER 2024-03-10 18:46 | Emergency (ER) | payer MEDICARE, OTHER, SELFPAY ==
[2024-03-10 18:48] VITALS: BP 200/82; PULSE 62; RESP 16; O2SAT 93; BMI 28.8
--- NOTE | 2024-03-10 19:31 | ED_ITS ---
HPI - Extremity Problem 2 General: Chief complaint: Extremity Problem,Nontraumatic Stated complaint: leg swelling Time Seen by Provider: 03/10/24 19:12 History of Present Illness: Patient presents to the ER with leg swelling over the last week. Patient reports that his continue to get worse. Patient saw her PCP approximately 2 days ago they stopped her amlodipine and started her on metoprolol for her blood pressure. She says that the swelling has not improved. Patient's blood pressure upon arrival was 200/82. 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 Surgical History History of hysterectomy 1988 Family History Grandmother Diabetes Mother Diabetes Social History Smoking and tobacco/nicotine status: never used tobacco/nicotine Alcohol intake: never Substance/Drug Use: never Lives independently: Yes Household members: spouse Marital status: service: No Current occupational status: retired Leisure activites: exercise Physical Exam 2 Const: COMMON NORMALS: no acute distress, average body habitus, patient oriented x3, no limitations, healthy appearing, alert and well nourished HENMT: COMMON NORMALS: normocephalic, atraumatic, hearing grossly normal bilaterally, external ears normal, Normal external nose present, moist oral mucous membranes and oropharynx normal HEAD & SCALP: normocephalic and atraumatic NOSE: Normal external nose present EXTERNAL EAR: Yes external ears normal Neck/C-Spine: COMMON NORMALS: no JVD Chest: COMMONS NORMALS: normal inspection of the chest and normal palpation of entire chest wall Resp: COMMON NORMALS: normal respiratory effort, No retractions, No use of accessory muscles and clear to auscultation bilaterally AUSCULTATION: clear to auscultation bilaterally Cardio: COMMON NORMALS: no JVD, regular rate, regular rhythm, S1 normal heart sound present, S2 normal heart sound present, No gallops present (Cardio), No clicks present (Cardio), No murmurs present (Cardio) and No rub (Cardio) R ATE: regular rate RHYTHM: regular rhythm HEART SOUNDS: S1 normal heart sound present and S2 normal heart sound present GI: COMMON NORMALS: Normal to inspection, nondistended, normoactive bowel sounds present, Soft to palpation, non-tender, No hepatosplenomegaly present and no masses PALPATION: Yes Soft to palpation and Yes No hepatosplenomegaly present Extremity: NARRATIVE EXTREMITY EXAM: 1-2+ pitting edema bilateral lower extre mities, no erythema or drainage Neuro: COMMON NORMALS: patient oriented x3 SENSORIUM/ORIENTATION: Yes alert Course 2 Vital Signs: Vital signs: Vital Signs Temperature 98.3 F 03/10/24 20:09 Pulse Rate 62 03/10/24 18:48 Respiratory Rate 16 03/10/24 18:48 Blood Pressure 200/82 03/10/24 18:48 Pulse Oximetry 93 03/10/24 18:48 Oxygen Delivery Me thod Room Air 03/10/24 18:48 MDM - Extremity (Nontraumatic) Medical Decision Making Patient lab work was essentially unremarkable with a mildly elevated BNP of 978, patient was given 25 mg hydralazine p.o., 20 mg Lasix p.o., and 0.2 mg clonidine p.o. to help with her blood pressure and diurese some fluid off of her. Anticipate once blood pressure is improved patient be discharged home with a short course of Lasix to help with her swelling. Differential Diagnosis Likely lower extremity edema; Unlikely herpes zoster, gout, cellulitis, superficial thrombophlebitis, deep venous thrombosis of upper extremity or deep vein thrombosis of lower extremity Medical Records I reviewed the patient's medical records. Lab Data I reviewed the patient's lab results. 03/10/24 19:35 03/10/24 19:35 Laboratory Results WBC 7.10 10^3/uL (3.29-11.43) 03/10/24 19:35 RBC 3.86 10^6/uL (3.85-5.65) 03/10/24 19:35 Hgb 12.60 g/dL (11.27-16.99) 03/10/24 19:35 Hct 35.4 % (36-47) L 03/10/24 19:35 MCV 91.7 fl (85-98) 03/10/24 19:35 MCH 32.6 pg (27-33) 03/10/24 19:35 MCHC 35.6 g/dL (30-55) 03/10/24 19:35 RDW 13.0 % (12.1-15.1) 03/10/24 19:35 Plt Count 208 10^3/cmm (157-399) 03/10/24 19:35 MPV 10.2 fL (7.4-10.4) 03/10/24 19:35 Neut % (Auto) 64.1 % 03/10/24 19:35 Lymph % (Auto) 20.4 % 03/10/24 19:35 [place] % (Auto) 7.2 % 03/10/24 19:35 Eos % (Auto) 6.9 % 03/10/24 19:35 Baso % (Auto) 1.1 % 03/10/24 19:35 Neut # (Auto) 4.55 10^3/uL (1.8-7.7) 03/10/24 19:35 Lymph # (Auto) 1.5 10^3/uL (0.8-4.8) 03/10/24 19:35 [place] # (Auto) 0.5 10^3/uL (0.2-0.9) 03/10/24 19:35 Eos # (Auto) 0.5 10^3/uL (0.0-0.8) 03/10/24 19:35 Baso # (Auto) 0.1 10^3/uL (0.0-0.1) 03/10/24 19:35 Nucleated RBC % (auto) 0 % 03/10/24 19:35 Nucleated RBCs # 0.0 /100WBC 03/10/24 19:35 Sodium 132 mmol/L (136-145) L 03/10/24 19:35 Potassium 4.2 mmol/L (3.5-5.1) 03/10/24 19:35 Chloride 98 mmol/L (98-107) 03/10/24 19:35 Carbon Dioxide 21 mmol/L (22-29) L 03/10/24 19:35 Anion Gap 17.2 (5-19) 03/10/24 19:35 BUN 14 mg/dL (8-23) 03/10/24 19:35 Creatinine 0.7 mg/dL (0.5-0.9) 03/10/24 19:35 GFR Calculation Not Reportable 03/10/24 19:35 Glucose 167 mg/dL (65-115) H 03/10/24 19:35 Calculated Osmolality 278 mOsm/kg (285-295) L 03/10/24 19:35 Calcium 8.3 mg/dL (8.5-10.5) L 03/10/24 19:35 Total Bilirubin 0.3 mg/dL (0.15-1.2) 03/10/24 19:35 AST 24 U/L (0-32) 03/10/24 19:35 ALT 21 U/L (0-33) 03/10/24 19:35 Alkaline Phosphatase 74 U/L (35-105) 03/10/24 19:35 NT-Pro-B Natriuret Pep 978 pg/mL (0-450) H 03/10/24 19:35 Total Protein 6.4 g/dL (6.6-8.7) L 03/10/24 19:35 Albumin 4.0 g/dL (3.5-5.2) 03/10/24 19:35 Globulin 2.4 g/dL (1.3-4.6) 03/10/24 19:35 All radiology interpretation(s) finalized by discharge Discharge Plan Discharge Patient Disposition: Home Clinical Impression: Edema Qualifiers: Edema type: unspecified Qualified Code(s): R60.9 - Edema, unspecified Hypertension Qualifiers: Hypertension type: unspecified Qualified Code(s): I10 - Essential (primary) hypertension Condition: Stable Prescriptions: New Lasix 20 mg tablet 20 mg PO QAM Qty: 5 0RF No Action omega 5-rkg-rpf-fish oil [Fish Oil] 1,000 mg (120 mg-180 mg) capsule 2 cap PO TID cyanocobalamin (vitamin B-12) 1,000 mcg capsule 1,000 mcg PO DAILY aspirin 81 mg tablet,delayed release (DR/EC) 81 mg PO DAILY amlodipine 5 mg tablet 5 mg PO DAILY Qty: 30 11RF Hold Instructions: Home Medication placed on hold at Doctor's office olmesartan 40 mg tablet 40 mg PO DAILY Qty: 30 11RF diphenoxylate-atropine [Lomotil] 2.5-0.025 mg tablet 1 tab PO QID PRN (Reason: diarrhea) Qty: 60 3RF clotrimazole-betamethasone 1-0.05 % cream 1 applic topical BID Qty: 45 11RF Januvia 100 mg tablet 100 mg PO DAILY Qty: 90 11RF Hold Instructions: see pcp (DME) Prodigy No Coding Strip See Rx Instructions .Route Qty: 100 11RF Rx Instructions: check twice a day (DME) blood-glucose meter [ReliOn All-In-One Meter] Kit See Rx Instructions .Route Qty: 1 1RF Rx Instructions: check daily- give 100 test strips and 11 refills estradiol 2 mg tablet 2 mg PO DAILY Qty: 90 3RF levothyroxine 137 mcg tablet See Rx Instructions .ROUTE .COMPLEX Qty: 30 11RF Dose Instruction: TAKE 1 TABLET BY MOUTH DAILY Rx Instructions: TAKE 1 TABLET BY MOUTH DAILY clonazepam 0.5 mg tablet 0.5 mg PO DAILY Qty: 30 5RF (DME) pen needle, diabetic [Sure-Fine Pen [place]] 31 gauge x 5/16 needle See Rx Instructions .Route Qty: 100 11RF Rx Instructions: As directed metoprolol succinate 50 mg tablet extended release 24 hr 50 mg PO BEDTIME Claritin 10 mg Tablet 10 mg PO DAILY Discharge Orders: Discharge ED (Routine); Ordered 03/10/24 Ordered By: Yannick Willingham Referrals: Zach Simpson MD [Primary Care Provider] - 1 week Patient Instructions: Hypertension, Edema (ED) Activity Restrictions/Additional Instructions: You are given Lasix in the ER to help you diurese off excess fluid causing edema. You are also given clonidine and hydralazine to help lower your blood pressure. You will be prescribed Lasix 1 pill daily for the next 5 days to help get rid of all this excess fluid. Please keep an eye on your blood pressure as you may need your blood pressure medicines changed if your blood pressure stays elevated. Please follow-up with your family doctor within the next 7 days for further evaluation and treatment. Coding Level of Care Code ED Flue Gas Analyst for Frannie Harris
[2024-03-10] MEDS: FUROsemide 20 mg Tablet PO (19:35)
[2024-03-10] MEDS: hyDRALAzine 25 mg Tablet PO (19:36)
[2024-03-10 20:06] LABS: Basophils # 0.1 10^3/uL (0.0-0.1); Basophils % 1.1 %; Eosinophils # 0.5 10^3/uL (0.0-0.8); Eosinophils % 6.9 %; Hematocrit 35.4 % (36-47); Lymphocytes # 1.5 10^3/uL (0.8-4.8); Lymphocytes % 20.4 %; Mean Corpuscular HGB Conc 35.6 g/dL (30-55); Mean Corpuscular Hemoglobin 32.6 pg (27-33); Mean Corpuscular Volume 91.7 fl (85-98); Mean Platelet Volume 10.2 fL (7.4-10.4); Monocytes # 0.5 10^3/uL (0.2-0.9); Monocytes % 7.2 %; Neutrophils # 4.55 10^3/uL (1.8-7.7); Neutrophils % 64.1 %; Nucleated Red Blood Cells % 0 %; Platelet Count 208 10^3/cmm (157-399); Red Blood Count 3.86 10^6/uL (3.85-5.65)
[2024-03-10 20:09] VITALS: TEMP 36.8
--- NOTE | 2024-03-10 20:10 | PC.NURSE ---
BEDSIDE COMMODE AND WIPES PROVIDED DUE TO LASIX ADMINISTRATION AND PAIN WITH AMBULATION.
[2024-03-10 20:45] LABS: Alanine Aminotransferase 21 U/L (0-33); Alkaline Phosphatase 74 U/L (35-105); Anion Gap 17.2 (5-19); Aspartate Amino Transferase 24 U/L (0-32); Blood Urea Nitrogen 14 mg/dL (8-23); Calcium 8.3 mg/dL (8.5-10.5); Carbon Dioxide 21 mmol/L (22-29); Chloride 98 mmol/L (98-107); Creatinine Clr Calc Pharmacy 51.7286; Globulin 2.4 g/dL (1.3-4.6); Glucose 167 mg/dL (65-115); NT Pro B Type Natriuretic Pept 978 pg/mL (0-450); Osmolality Calculated 278 mOsm/kg (285-295); Potassium 4.2 mmol/L (3.5-5.1); Sodium 132 mmol/L (136-145); Total Bilirubin 0.3 mg/dL (0.15-1.2); Total Protein 6.4 g/dL (6.6-8.7)
[2024-03-10 22:01] VITALS: BP 221/99
[2024-03-10] MEDS: cloNIDine 0.1 mg Tablet 0.200000000000000011 MG PO (22:01)
[2024-03-10] MEDS: HYDROcodone-acetaminophen 5-325 mg Tablet 1 TAB PO (22:04)
[2024-03-10 23:00] VITALS: BP 205/97; PULSE 64; RESP 18; O2SAT 96
[2024-03-10 23:30] VITALS: BP 214/105; PULSE 64; RESP 18; O2SAT 96
[2024-03-10] MEDS: hyDRALAzine 25 mg Tablet 50 MG PO (23:34)
[2024-03-11] VITALS: BP 156/94; PULSE 76; RESP 16; RESP 18; O2SAT 96
[2024-03-11] MEDS: morphine 4 mg/mL SDV 1 mL IM
[2024-03-11 02:06] VITALS: BP 144/74; PULSE 62; RESP 18; O2SAT 93
[2024-03-11 02:28] VITALS: BP 144/74; O2SAT 95
== END 2024-03-11 02:11 | disposition home or self-care (01) ==
PROVIDERS: Emergency Provider Emergency Medicine; PCP Family Medicine
DX: R60.9 Edema, unspecified (principal); I10 Essential (primary) hypertension; Z79.82 Long term (current) use of aspirin; E11.9 Type 2 diabetes mellitus without complications
CPT/HCPCS: 36415; 80053; 83880; 85025; 96372; 99284; J2270

== ENCOUNTER 2024-03-15 13:24 | Outpatient (CLI) | payer MEDICARE, OTHER, SELFPAY ==
--- NOTE | 2024-03-15 13:29 | XRR_ITS ---
PROCEDURE INFORMATION: Exam: XR Left Knee Exam date and time: 03/15/2024 1:35 PM Age: 83 years old Clinical indication: Injury or trauma; Fall; Blunt trauma; Injury details: Patient fell 5 days ago and has pain in the left knee; Additional info: Knee pain TECHNIQUE: Imaging protocol: Radiologic exam of the left knee. Views: 1 or 2 views. COMPARISON: No relevant prior studies available. FINDINGS: Bones/joints: See Soft tissues finding. Soft tissues: Soft tissue swelling is noted anterior to the patella but I see no bony fracture or joint effusion. XR/XR knee LT 1-2V [id number] IMPRESSION: Soft tissue swelling without fracture
== END 2024-03-15 13:25 | disposition home or self-care (01) ==
LOC: RAD 13:25
PROVIDERS: PCP Family Medicine; Visit Provider Family Medicine
DX: M25.562 Pain in left knee (principal); M25.462 Effusion, left knee
CPT/HCPCS: 73560

== ENCOUNTER → 2024-10-09 09:46 | Outpatient (BNVA) | payer MEDICARE, OTHER, SELFPAY | PROVIDERS: PCP Family Medicine; Visit Provider Family Medicine | DX: E11.9 Type 2 diabetes mellitus without complications (principal); R73.03 Prediabetes; I10 Essential (primary) hypertension; R53.83 Other fatigue; N18.9 Chronic kidney disease, unspecified | CPT/HCPCS: 80053; 80061; 83036; 84443; 85025 ==

== ENCOUNTER → 2025-03-27 08:20 | Outpatient (BNVA) | payer MEDICARE, OTHER, SELFPAY | PROVIDERS: PCP Family Medicine; Visit Provider Family Medicine | DX: E11.9 Type 2 diabetes mellitus without complications (principal); I10 Essential (primary) hypertension | CPT/HCPCS: 80053; 80061; 83036 ==

== ENCOUNTER → 2025-07-11 11:22 | Outpatient (BNVA) | payer MEDICARE, OTHER, SELFPAY | PROVIDERS: PCP Family Medicine; Visit Provider Family Medicine | DX: E11.9 Type 2 diabetes mellitus without complications (principal) | CPT/HCPCS: 80053; 83036 ==

== ENCOUNTER → 2025-09-13 11:07 | Outpatient (BNVA) | payer MEDICARE, OTHER, SELFPAY | PROVIDERS: PCP Family Medicine; Visit Provider Family Medicine | DX: L03.116 Cellulitis of left lower limb (principal); L03.115 Cellulitis of right lower limb; I10 Essential (primary) hypertension | CPT/HCPCS: 80053; 83880; 85025; 86140 ==

== ENCOUNTER → 2025-10-31 10:22 | Outpatient (BNVA) | payer MEDICARE, OTHER, SELFPAY | PROVIDERS: PCP Family Medicine; Visit Provider Family Medicine | DX: I10 Essential (primary) hypertension (principal); L03.90 Cellulitis, unspecified; R60.9 Edema, unspecified | CPT/HCPCS: 80053; 85025 ==